=== PATIENT | male | born 1980 | race Two or more races ===

== ENCOUNTER 2022-04-12 11:59 | Emergency (ER) | payer SELFPAY ==
[~2022-04-12] VITALS: Ht 182.9 cm; Wt 102.4 kg
[2022-04-12 12:48] VITALS: BP 195/140
[2022-04-12 12:51] LABS: BASOPHILS % (AUTO) 0.3 % (0-1); EOSINOPHILS # (AUTO) 0.2 X10'3 (0-0.9); EOSINOPHILS % (AUTO) 1.2 % (0-6); HEMATOCRIT 36.6 % (42.0-52.0); HEMOGLOBIN 11.9 g/dl (14.0-17.9); LYMPHOCYTES # (AUTO) 1.7 X10'3 (1.1-4.8); LYMPHOCYTES % (AUTO) 11.9 % (21-51); MEAN CORPUSCULAR HEMOGLOBIN 25.7 PG (27.0-31.0); MEAN CORPUSCULAR HGB CONC 32.4 g/dL (33.0-36.5); MEAN CORPUSCULAR VOLUME 79.2 FL (78-98); MEAN PLATELET VOLUME 6.9 FL (7.4-10.4); MONOCYTES # (AUTO) 0.9 X10'3 (0-0.9); MONOCYTES % (AUTO) 5.9 % (2-12); NEUTROPHILS # (AUTO) 11.9 X10'3 (1.8-7.7); NEUTROPHILS % (AUTO) 80.7 % (42-75); PLATELET COUNT 459 X10'3 (140-440); RED BLOOD COUNT 4.62 X10'6 (4.70-6.10); RED CELL DISTRIBUTION WIDTH 15.5 % (11.5-14.5); WHITE BLOOD COUNT 14.7 X10'3 (4.5-11.0)
[2022-04-12 13:06] LABS: ALANINE AMINOTRANSFERASE 18 U/L (12-78); ALBUMIN 3.1 G/DL (3.4-5.0); ALBUMIN/GLOBULIN RATIO 0.7 (1.1-1.5); ALKALINE PHOSPHATASE 68 IU/L (46-116); ANION GAP 15 (8-16); ASPARTATE AMINO TRANSFERASE 10 U/L (10-37); BILIRUBIN,TOTAL 0.5 MG/DL (0.1-1.0); BLOOD UREA NITROGEN 68 MG/DL (7-18); CALCIUM 9.3 MG/DL (8.5-10.1); CHLORIDE 106 MMOL/L (99-107); CREATININE 5.69 MG/DL (0.60-1.10); GLUCOSE 109 MG/DL (70-104); POTASSIUM 4.2 MMOL/L (3.5-5.1); SODIUM 141 MMOL/L (135-145); TOTAL CARBON DIOXIDE 20.3 MMOL/L (24-32); TOTAL PROTEIN 7.5 G/DL (6.4-8.2); eGFR 11 ML/MIN
== END 2022-04-12 20:22 | disposition left against medical advice (07) ==
LOC: ER 12:00
DX: R06.02 Shortness of breath (principal); Z53.21 Procedure and treatment not carried out due to patient leaving prior to being seen by health care provider
CPT/HCPCS: 36415; 71045; 80053; 83880; 84484; 85025; 93005

== ENCOUNTER 2022-05-22 20:27 | Inpatient (IN) | payer BC, OTHER ==
[~2022-05-22] VITALS: Ht 182.9 cm; Wt 94.3 kg
[2022-05-22] MEDS ORDERED: CARV3.12 PO (20:51)
[2022-05-22] MEDS ORDERED: NIFE30TA2 PO (20:51)
[2022-05-22] MEDS ORDERED: ringers solution, lacted 1,000 ML IV ONE (22:00)
[2022-05-22] MEDS ORDERED: piperacillin/tazo 3.375gm/50ml 50 ML IV ONE (22:00)
[2022-05-22] MEDS ORDERED: morphine 4 MG/ML inj SYRINge IV ONE (22:00)
[2022-05-22] MEDS ORDERED: ondansetron/PF 4mg/2ml inj IV ONE ×2 (22:00→23:45)
[2022-05-22 22:21] LABS: BASOPHILS % (AUTO) 0.1 % (0-1); EOSINOPHILS # (AUTO) 0.2 X10'3 (0-0.9); HEMATOCRIT 37.1 % (42.0-52.0); HEMOGLOBIN 12.6 g/dl (14.0-17.9); LYMPHOCYTES % (AUTO) 9.2 % (21-51); MEAN CORPUSCULAR HEMOGLOBIN 25.6 PG (27.0-31.0); MEAN CORPUSCULAR HGB CONC 33.8 g/dL (33.0-36.5); MEAN CORPUSCULAR VOLUME 75.8 FL (78-98); MEAN PLATELET VOLUME 6.6 FL (7.4-10.4); MONOCYTES # (AUTO) 1.7 X10'3 (0-0.9); MONOCYTES % (AUTO) 7.5 % (2-12); NEUTROPHILS # (AUTO) 18.1 X10'3 (1.8-7.7); NEUTROPHILS % (AUTO) 82.2 % (42-75); PLATELET COUNT 555 X10'3 (140-440); RED CELL DISTRIBUTION WIDTH 15.1 % (11.5-14.5); WHITE BLOOD COUNT 22.1 X10'3 (4.5-11.0)
[2022-05-22 22:38] LABS: ALANINE AMINOTRANSFERASE 14 U/L (12-78); ALBUMIN 2.6 G/DL (3.4-5.0); ALBUMIN/GLOBULIN RATIO 0.6 (1.1-1.5); ALKALINE PHOSPHATASE 67 IU/L (46-116); ANION GAP 19 (8-16); ASPARTATE AMINO TRANSFERASE 6 U/L (10-37); BILIRUBIN,TOTAL 0.3 MG/DL (0.1-1.0); BLOOD UREA NITROGEN 98 MG/DL (7-18); BUN/CREATININE RATIO 13.4 (5.4-32.0); CALCIUM 8.8 MG/DL (8.5-10.1); CHLORIDE 100 MMOL/L (99-107); CREATININE 7.32 MG/DL (0.60-1.10); GLUCOSE 112 MG/DL (70-104); MAGNESIUM 2.1 MG/DL (1.5-2.4); PHOSPHORUS 5.6 MG/DL (2.3-4.5); POTASSIUM 3.9 MMOL/L (3.5-5.1); SODIUM 135 MMOL/L (135-145); TOTAL CARBON DIOXIDE 16.4 MMOL/L (24-32); TOTAL PROTEIN 6.7 G/DL (6.4-8.2); eGFR 8 ML/MIN
--- NOTE | 2022-05-22 23:15 | NUR ---
Doctor Chandan notified of patient ongoing hypertension, advised patient has not received procardia or coreg today, advised RN to give his regularly prescribed medications.
[2022-05-22] MEDS ORDERED: carVEDilol 3.125mg tablet PO SCH (23:19)
[2022-05-22] MEDS ORDERED: NIFEdipine XL 30mg tablet PO SCH (23:19)
--- NOTE | 2022-05-22 23:42 | NUR ---
pt on a hospital bed.
--- NOTE | 2022-05-22 23:42 | NUR ---
PLACED ON IN-PATIENT HOSP BED
[2022-05-23] MEDS ORDERED: diphenhydrAMINE 50 mg/ml inj IV PRN (00:35)
[2022-05-23] MEDS ORDERED: morphine 2 MG/ML inj. syringe IV PRN ×2 (00:35)
[2022-05-23] MEDS ORDERED: mag hydrox/Alum hydrox/simeth 30ml oral suspension PO PRN (00:35)
[2022-05-23] MEDS ORDERED: HYDROcodone/acetaminophen 5mg/325mg tablet PO PRN (00:35)
[2022-05-23] MEDS ORDERED: acetaminophen 325mg tablet PO PRN ×2 (00:35)
[2022-05-23] MEDS ORDERED: ondansetron 4mg rapidly disintigrating tab PO PRN (00:35)
[2022-05-23] MEDS ORDERED: bisacodyl 10mg suppository rectal RC PRN (00:35)
[2022-05-23] MEDS ORDERED: diphenhydrAMINE 25mg capsule PO PRN (00:35)
[2022-05-23] MEDS ORDERED: magnesium hydroxide 30ml (MOM) UD suspension PO PRN (00:35)
[2022-05-23] MEDS ORDERED: acetaminophen 650mg rectal suppository RC PRN (00:35)
[2022-05-23] MEDS ORDERED: ondansetron/PF 4mg/2ml inj IV PRN (00:35)
[2022-05-23] MEDS ORDERED: normal saline 1000ml 1,000 ML IV SCH (00:35)
[2022-05-23 01:32] LABS: CLARITY,URINE CLEAR (Clear); COLOR,URINE YELLOW (Yellow); GLUCOSE, URINE NEGATIVE (Neg); KETONES,URINE NEGATIVE (Neg); LEUKOCYTE ESTERASE ,URINE NEGATIVE (Neg); NITRITES, URINE NEGATIVE (Neg); OCCULT BLOOD,URINE MODERATE (Neg); PH,URINE 5.5 (4.8-8.0); PROTEIN,URINE 30 mg/dl (Neg); UROBILINOGEN,URINE 0.2 E.U/dL (0.2-1.0)
[2022-05-23 01:37] LABS: UA COLLECTION TYPE VOIDED; WBC,URINE 0-4 /HPF (0-4)
[2022-05-23 01:38] LABS: BACTERIA,URINE FEW /HPF (Neg); SQUAMOUS EPITHELIAL CELL,UR FEW /LPF (FEW)
[2022-05-23 01:50] LABS: URINE AMPHETAMINE SCREEN NEGATIVE (Neg); URINE BARBITUATE SCREEN NEGATIVE (Neg); URINE BENZODIAZEPINES SCREEN NEGATIVE (Neg); URINE CANNABINOID SCREEN NEGATIVE (Neg); URINE COCAINE SCREEN NEGATIVE (Neg); URINE METHADONE SCREEN NEGATIVE (Neg); URINE OPIATE SCREEN POSITIVE (Neg); URINE PHENCYCLIDINE SCREEN NEGATIVE (Neg)
[2022-05-23] MEDS ORDERED: CARV6.253 PO (02:24)
[2022-05-23] MEDS ORDERED: NIFE-34 PO (02:24)
[2022-05-23] MEDS ORDERED: carVEDilol 3.125mg tablet PO STA (02:52)
[2022-05-23] MEDS ORDERED: NIFEdipine XL 30mg tablet PO STA (02:52)
--- NOTE | 2022-05-23 02:56 | NUR ---
Patient continues with hypertension, 166/110. Provider notified, after discussion with pharmacy and updated dosages of nifedipine and coreg, advised give remainder of confirmed dosages of these. Discussed with pharmacy who kindly agrees to assist with adjustment of orders.
[2022-05-23 03:16] LABS: HEMOGLOBIN A1C 5.6 % (4.5-6.2)
[2022-05-23 03:24] LABS: APTT 30 SECONDS (22-32)
[2022-05-23 03:31] LABS: CREATINE KINASE 29 U/L (39-308); LIPASE 208 U/L (73-393)
--- NOTE | 2022-05-23 06:59 | NUR ---
report from rn rekha for continuation of care. pt is sleeping in position of comfort. even rise and fall of chest.
[2022-05-23] MEDS: docusate sod 100mg capsule PO SCH ×2 (08:00→20:00)
[2022-05-23] MEDS: nicotine 21mg patch - 24 hr TD SCH (08:50)
[2022-05-23] MEDS: heparin, porcine 5000 units/ml vial SQ SCH ×2 (08:53→20:37)
[2022-05-23] MEDS: pantoprazole 40mg Tablet.DR PO SCH (08:53)
[2022-05-23] MEDS: piperacillin/tazo 4.5gm/100ml 100 ML IV SCH ×2 (09:24→20:37)
--- NOTE | 2022-05-23 11:04 | NUR ---
Patient in room [facility] 347B. I have received report from MARYANNE RUIZ FROM ER and had the opportunity to ask questions and assume patient care.
[2022-05-23 11:47] LABS: BASOPHILS % (AUTO) 0.2 % (0-1); EOSINOPHILS # (AUTO) 0.2 X10'3 (0-0.9); EOSINOPHILS % (AUTO) 0.9 % (0-6); HEMATOCRIT 36.3 % (42.0-52.0); HEMOGLOBIN 12.1 g/dl (14.0-17.9); LYMPHOCYTES # (AUTO) 1.7 X10'3 (1.1-4.8); LYMPHOCYTES % (AUTO) 9.6 % (21-51); MEAN CORPUSCULAR HEMOGLOBIN 25.2 PG (27.0-31.0); MEAN CORPUSCULAR HGB CONC 33.4 g/dL (33.0-36.5); MEAN CORPUSCULAR VOLUME 75.4 FL (78-98); MEAN PLATELET VOLUME 6.6 FL (7.4-10.4); MONOCYTES # (AUTO) 1.1 X10'3 (0-0.9); MONOCYTES % (AUTO) 6.2 % (2-12); NEUTROPHILS # (AUTO) 14.9 X10'3 (1.8-7.7); NEUTROPHILS % (AUTO) 83.1 % (42-75); PLATELET COUNT 523 X10'3 (140-440); RED BLOOD COUNT 4.81 X10'6 (4.70-6.10); WHITE BLOOD COUNT 17.9 X10'3 (4.5-11.0)
[2022-05-23 11:54] LABS: ALANINE AMINOTRANSFERASE 13 U/L (12-78); ALBUMIN 2.4 G/DL (3.4-5.0); ALBUMIN/GLOBULIN RATIO 0.6 (1.1-1.5); ALKALINE PHOSPHATASE 62 IU/L (46-116); ANION GAP 17 (8-16); ASPARTATE AMINO TRANSFERASE 6 U/L (10-37); BILIRUBIN,TOTAL 0.3 MG/DL (0.1-1.0); BLOOD UREA NITROGEN 99 MG/DL (7-18); BUN/CREATININE RATIO 13.7 (5.4-32.0); CALCIUM 8.6 MG/DL (8.5-10.1); CHLORIDE 100 MMOL/L (99-107); CREATININE 7.24 MG/DL (0.60-1.10); GLUCOSE 135 MG/DL (70-104); MAGNESIUM 2.1 MG/DL (1.5-2.4); PHOSPHORUS 5.1 MG/DL (2.3-4.5); POTASSIUM 3.8 MMOL/L (3.5-5.1); SODIUM 134 MMOL/L (135-145); TOTAL CARBON DIOXIDE 17.1 MMOL/L (24-32); TOTAL PROTEIN 6.3 G/DL (6.4-8.2); eGFR 8 ML/MIN
[2022-05-23] MEDS: methylPREDNISolone sod succ 125mg/2ml vial IV SCH ×2 (16:54→23:45)
[2022-05-23 18:00] VITALS: BP 154/98
--- NOTE | 2022-05-23 18:12 | NUR ---
Problems reprioritized. Patient report given, questions answered & plan of care reviewed with ALAN Zamora RN.
[2022-05-23] MEDS: carvedilol 6.25mg tablet PO SCH (20:37)
[2022-05-23] MEDS ORDERED: temazepam 15mg capsule PO PRN (21:00)
[2022-05-23 22:00] VITALS: BP 160/107
--- NOTE | 2022-05-24 05:57 | NUR ---
Report given to Kassie MADDEN.
[2022-05-24 06:00] VITALS: BP 149/105
--- NOTE | 2022-05-24 06:12 | NUR ---
Patient in room [facility] 347B. I have received report from ALAN Zamora RN and had the opportunity to ask questions and assume patient care.
[2022-05-24 06:47] LABS: BASOPHILS % (AUTO) 0 % (0-1); EOSINOPHILS % (AUTO) 0 % (0-6); HEMATOCRIT 37.9 % (42.0-52.0); HEMOGLOBIN 12.3 g/dl (14.0-17.9); LYMPHOCYTES # (AUTO) 1.1 X10'3 (1.1-4.8); LYMPHOCYTES % (AUTO) 6.7 % (21-51); MEAN CORPUSCULAR HEMOGLOBIN 24.7 PG (27.0-31.0); MEAN CORPUSCULAR HGB CONC 32.5 g/dL (33.0-36.5); MEAN CORPUSCULAR VOLUME 75.9 FL (78-98); MEAN PLATELET VOLUME 6.9 FL (7.4-10.4); MONOCYTES # (AUTO) 0.1 X10'3 (0-0.9); MONOCYTES % (AUTO) 0.4 % (2-12); NEUTROPHILS # (AUTO) 14.6 X10'3 (1.8-7.7); NEUTROPHILS % (AUTO) 92.9 % (42-75); PLATELET COUNT 510 X10'3 (140-440); RED BLOOD COUNT 4.99 X10'6 (4.70-6.10); RED CELL DISTRIBUTION WIDTH 15.1 % (11.5-14.5); WHITE BLOOD COUNT 15.7 X10'3 (4.5-11.0)
[2022-05-24 07:07] LABS: ALANINE AMINOTRANSFERASE 9 U/L (12-78); ALBUMIN 2.6 G/DL (3.4-5.0); ALBUMIN/GLOBULIN RATIO 0.6 (1.1-1.5); ALKALINE PHOSPHATASE 77 IU/L (46-116); ANION GAP 17 (8-16); ASPARTATE AMINO TRANSFERASE 14 U/L (10-37); BILIRUBIN,TOTAL 0.3 MG/DL (0.1-1.0); BLOOD UREA NITROGEN 96 MG/DL (7-18); BUN/CREATININE RATIO 13.4 (5.4-32.0); CHLORIDE 100 MMOL/L (99-107); CHOL/HDL RATIO 3.8 (0.00-4.99); CHOLESTEROL 192 MG/DL (0-200); CREATININE 7.16 MG/DL (0.60-1.10); GLUCOSE 139 MG/DL (70-104); HDL CHOLESTEROL 50 MG/DL (35-60); LACTATE DEHYDROGENASE 141 U/L (85-227); LDL CHOLESTEROL 121 MG/DL (50-100); POTASSIUM 4.2 MMOL/L (3.5-5.1); SODIUM 136 MMOL/L (135-145); TOTAL CARBON DIOXIDE 18.7 MMOL/L (24-32); TRIGLYCERIDES 155 MG/DL (20-135); eGFR 8 ML/MIN
[2022-05-24 07:10] LABS: RHEUM FACTOR QUAL REFLEX TITER NEGATIVE (Neg)
[2022-05-24] MEDS: pantoprazole 40mg Tablet.DR PO SCH (07:30)
[2022-05-24] MEDS: docusate sod 100mg capsule PO SCH ×2 (07:45→19:09)
[2022-05-24] MEDS: heparin, porcine 5000 units/ml vial SQ SCH ×2 (07:45→19:15)
[2022-05-24] MEDS ORDERED: heparin 1,000unit/ml 10ml vial 10 ML IV ONE (08:00)
[2022-05-24] MEDS ORDERED: albumin (human) 25% 100ml IV 100 ML IV PRN (08:00)
[2022-05-24] MEDS ORDERED: heparin 1,000 units/ml 10ml inj HE ONE ×2 (08:00)
[2022-05-24] MEDS ORDERED: heparin 1,000 units/ml 10ml inj IV ONE (08:00)
[2022-05-24] MEDS: piperacillin/tazo 4.5gm/100ml 100 ML IV SCH ×2 (08:07→19:15)
[2022-05-24] MEDS: methylPREDNISolone sod succ 125mg/2ml vial IV SCH ×3 (08:09→23:40)
[2022-05-24] MEDS: nicotine 21mg patch - 24 hr TD SCH (08:16)
[2022-05-24] MEDS: carvedilol 6.25mg tablet PO SCH ×2 (08:54→19:15)
[2022-05-24] MEDS: NIFEdipine XL 30mg tablet PO SCH (08:54)
[2022-05-24 10:00] VITALS: BP 138/89
[2022-05-24 10:33] LABS: CLARITY,URINE CLEAR (Clear); COLOR,URINE STRAW (Yellow); GLUCOSE, URINE NEGATIVE (Neg); KETONES,URINE NEGATIVE (Neg); LEUKOCYTE ESTERASE ,URINE NEGATIVE (Neg); NITRITES, URINE NEGATIVE (Neg); OCCULT BLOOD,URINE MODERATE (Neg); PH,URINE 5.5 (4.8-8.0); PROTEIN,URINE 100 mg/dl (Neg); UROBILINOGEN,URINE 0.2 E.U/dL (0.2-1.0)
[2022-05-24 10:37] LABS: TOTAL PROTEIN,URINE RANDOM 138.1 MG/DL
[2022-05-24 10:39] LABS: UA COLLECTION TYPE CLN CATCH MIDSTREAM
[2022-05-24 10:40] LABS: BACTERIA,URINE FEW /HPF (Neg); MUCUS STRANDS NONE SEEN /LPF (Neg); SQUAMOUS EPITHELIAL CELL,UR FEW /LPF (FEW)
[2022-05-24 10:41] LABS: WBC,URINE NONE SEEN /HPF (0-4)
[2022-05-24 11:09] LABS: UA EOSINOPHILS NO EOS /HPF
[2022-05-24] MEDS: HYDROcodone/acetaminophen 10/325mg tab PO PRN ×3 (13:51→23:41)
[2022-05-24] MEDS: HYDROmorphone inj. 0.5 MG/0.5 ML DISP.SYRIN IV PRN (15:03)
[2022-05-24 18:00] VITALS: BP 165/95
--- NOTE | 2022-05-24 19:12 | NUR ---
Problems reprioritized. Patient report given, questions answered & plan of care reviewed with ALAN Zamora RN.
[2022-05-24 22:00] VITALS: BP 163/100
--- NOTE | 2022-05-25 05:55 | NUR ---
Report given to Kassie MADDEN.
[2022-05-25 06:00] VITALS: BP 168/107
[2022-05-25 06:02] LABS: BASOPHILS % (AUTO) 0.1 % (0-1); EOSINOPHILS % (AUTO) 0 % (0-6); HEMATOCRIT 32.8 % (42.0-52.0); HEMOGLOBIN 10.5 g/dl (14.0-17.9); LYMPHOCYTES # (AUTO) 1.2 X10'3 (1.1-4.8); LYMPHOCYTES % (AUTO) 4.4 % (21-51); MEAN CORPUSCULAR HEMOGLOBIN 24.4 PG (27.0-31.0); MEAN CORPUSCULAR HGB CONC 32.1 g/dL (33.0-36.5); MEAN CORPUSCULAR VOLUME 75.8 FL (78-98); MEAN PLATELET VOLUME 6.9 FL (7.4-10.4); MONOCYTES # (AUTO) 0.3 X10'3 (0-0.9); MONOCYTES % (AUTO) 1.2 % (2-12); NEUTROPHILS # (AUTO) 26.4 X10'3 (1.8-7.7); NEUTROPHILS % (AUTO) 94.3 % (42-75); PLATELET COUNT 473 X10'3 (140-440); RED BLOOD COUNT 4.33 X10'6 (4.70-6.10); RED CELL DISTRIBUTION WIDTH 14.8 % (11.5-14.5)
--- NOTE | 2022-05-25 06:18 | NUR ---
CRITICAL WBC 28.0, DR BATEMAN CALLED NO NEW ORDERS
--- NOTE | 2022-05-25 06:19 | NUR ---
Patient in room [facility] 347B. I have received report from ALAN Zamora RN and had the opportunity to ask questions and assume patient care.
[2022-05-25 06:28] LABS: ALBUMIN 2.4 G/DL (3.4-5.0); ALBUMIN/GLOBULIN RATIO 0.6 (1.1-1.5); ALKALINE PHOSPHATASE 82 IU/L (46-116); ANION GAP 15 (8-16); ASPARTATE AMINO TRANSFERASE 18 U/L (10-37); BILIRUBIN,TOTAL 0.3 MG/DL (0.1-1.0); BLOOD UREA NITROGEN 116 MG/DL (7-18); CALCIUM 8.1 MG/DL (8.5-10.1); CHLORIDE 100 MMOL/L (99-107); CREATININE 7.72 MG/DL (0.60-1.10); GLUCOSE 149 MG/DL (70-104); SODIUM 134 MMOL/L (135-145); TOTAL CARBON DIOXIDE 18.7 MMOL/L (24-32); TOTAL PROTEIN 6.2 G/DL (6.4-8.2); eGFR 8 ML/MIN
[2022-05-25 06:29] LABS: ALANINE AMINOTRANSFERASE 18 U/L (12-78)
[2022-05-25 07:46] LABS: PLATELET ESTIMATE INCREASED; TOTAL CELLS COUNTED 100
[2022-05-25] MEDS: docusate sod 100mg capsule PO SCH ×2 (08:00→19:56)
[2022-05-25] MEDS ORDERED: heparin 1,000 units/ml 10ml inj HE ONE ×2 (08:00)
[2022-05-25] MEDS: heparin, porcine 5000 units/ml vial SQ SCH ×2 (08:00→19:56)
[2022-05-25] MEDS ORDERED: normal saline 1000ml 250 ML IV PRN (08:00)
[2022-05-25] MEDS ORDERED: heparin 1,000unit/ml 10ml vial 10 ML IV ONE (08:00)
[2022-05-25] MEDS: NIFEdipine XL 30mg tablet PO SCH (08:01)
[2022-05-25] MEDS: pantoprazole 40mg Tablet.DR PO SCH (08:01)
[2022-05-25] MEDS: carvedilol 6.25mg tablet PO SCH ×2 (08:01→19:55)
[2022-05-25] MEDS: nicotine 21mg patch - 24 hr TD SCH (08:02)
[2022-05-25] MEDS: methylPREDNISolone sod succ 125mg/2ml vial IV SCH ×3 (08:03→23:34)
[2022-05-25] MEDS: piperacillin/tazo 4.5gm/100ml 100 ML IV SCH ×2 (08:03→19:56)
[2022-05-25] MEDS: HYDROcodone/acetaminophen 10/325mg tab PO PRN ×3 (08:21→19:56)
[2022-05-25 11:00] VITALS: BP 143/88
--- NOTE | 2022-05-25 13:06 | NUR ---
Received order for consult. Met with patient in regards to substance use and to see if patient wanted any resources for treatment options. Patient declined resources and substance use.
[2022-05-25 18:00] VITALS: BP 146/90
--- NOTE | 2022-05-25 18:06 | NUR ---
Problems reprioritized. Patient report given, questions answered & plan of care reviewed with ALAN Zamora RN.
[2022-05-25 22:00] VITALS: BP 147/90
[2022-05-25] MEDS: HYDROmorphone inj. 0.5 MG/0.5 ML DISP.SYRIN IV PRN (22:32)
[2022-05-26 06:00] VITALS: BP 185/111
[2022-05-26 06:32] LABS: BASOPHILS % (AUTO) 0 % (0-1); EOSINOPHILS % (AUTO) 0 % (0-6); HEMATOCRIT 29.6 % (42.0-52.0); HEMOGLOBIN 9.9 g/dl (14.0-17.9); LYMPHOCYTES # (AUTO) 1.2 X10'3 (1.1-4.8); LYMPHOCYTES % (AUTO) 4.1 % (21-51); MEAN CORPUSCULAR HEMOGLOBIN 25.2 PG (27.0-31.0); MEAN CORPUSCULAR HGB CONC 33.5 g/dL (33.0-36.5); MEAN CORPUSCULAR VOLUME 75.3 FL (78-98); MEAN PLATELET VOLUME 6.9 FL (7.4-10.4); MONOCYTES # (AUTO) 0.4 X10'3 (0-0.9); MONOCYTES % (AUTO) 1.5 % (2-12); NEUTROPHILS # (AUTO) 27.9 X10'3 (1.8-7.7); NEUTROPHILS % (AUTO) 94.4 % (42-75); PLATELET COUNT 486 X10'3 (140-440); RED BLOOD COUNT 3.93 X10'6 (4.70-6.10); RED CELL DISTRIBUTION WIDTH 14.5 % (11.5-14.5)
[2022-05-26 06:37] LABS: WHITE BLOOD COUNT 29.5 X10'3 (4.5-11.0)
[2022-05-26 06:45] LABS: ALANINE AMINOTRANSFERASE 29 U/L (12-78); ALBUMIN 2.3 G/DL (3.4-5.0); ALBUMIN/GLOBULIN RATIO 0.6 (1.1-1.5); ALKALINE PHOSPHATASE 77 IU/L (46-116); ANION GAP 18 (8-16); ASPARTATE AMINO TRANSFERASE 19 U/L (10-37); BILIRUBIN,TOTAL 0.3 MG/DL (0.1-1.0); BLOOD UREA NITROGEN 132 MG/DL (7-18); CALCIUM 7.6 MG/DL (8.5-10.1); CHLORIDE 99 MMOL/L (99-107); CREATININE 7.78 MG/DL (0.60-1.10); GLUCOSE 163 MG/DL (70-104); POTASSIUM 3.9 MMOL/L (3.5-5.1); SODIUM 135 MMOL/L (135-145); TOTAL CARBON DIOXIDE 17.9 MMOL/L (24-32); eGFR 8 ML/MIN
--- NOTE | 2022-05-26 06:53 | NUR ---
promotional table spacer promotional table spacer Page Sent promotional table spacer PAGER ID: [phone] MESSAGE: michelle Hassan Rm 347B critical WBC 29.5 thank you Artis MADDEN
[2022-05-26 07:28] LABS: BURR CELLS FEW; MICROCYTOSIS 1+; PLATELET ESTIMATE INCREASED; TOTAL CELLS COUNTED 100
[2022-05-26] MEDS: heparin, porcine 5000 units/ml vial SQ SCH ×2 (08:00→20:34)
[2022-05-26] MEDS: pantoprazole 40mg Tablet.DR PO SCH (08:02)
[2022-05-26] MEDS: methylPREDNISolone sod succ 125mg/2ml vial IV SCH ×3 (08:03→23:45)
[2022-05-26] MEDS: NIFEdipine XL 30mg tablet PO SCH (08:03)
[2022-05-26] MEDS: carvedilol 6.25mg tablet PO SCH ×2 (08:03→20:34)
[2022-05-26] MEDS: docusate sod 100mg capsule PO SCH ×2 (08:03→20:34)
[2022-05-26] MEDS: nicotine 21mg patch - 24 hr TD SCH (08:04)
[2022-05-26 08:30] VITALS: BP 173/98
[2022-05-26] MEDS: piperacillin/tazo 4.5gm/100ml 100 ML IV SCH ×2 (08:54→20:34)
[2022-05-26 10:00] VITALS: BP 143/87
[2022-05-26] MEDS ORDERED: LIDOcaine 1% 30ml preserv. free vial ONE (10:51)
[2022-05-26] MEDS ORDERED: midazolam 1 mg/ML 2ml injection ONE (10:51)
[2022-05-26] MEDS ORDERED: FENTANYL CITRATE/PF 50 MCG/1 ML VIAL ONE (10:51)
[2022-05-26] MEDS ORDERED: heparin 1,000unit/ml 10ml vial 10 ML ONE (10:52)
[2022-05-26 11:14] LABS: ANTINUCLEAR ANTIBODIES Negative (Negative)
[2022-05-26] MEDS: HYDROcodone/acetaminophen 10/325mg tab PO PRN (11:48)
[2022-05-26 18:00] VITALS: BP 147/84
[2022-05-26 22:30] VITALS: BP 159/89
[2022-05-27 05:14] LABS: HBSAG SCREEN Negative (Negative)
--- NOTE | 2022-05-27 06:11 | NUR ---
reported to days. noted pt hopefully to have kidney biopsy today
--- NOTE | 2022-05-27 06:15 | NUR ---
Patient in room [facility] 347. I have received report from MARYANNE Menendez and had the opportunity to ask questions and assume patient care.
[2022-05-27 06:30] LABS: BASOPHILS % (AUTO) 0.1 % (0-1); EOSINOPHILS % (AUTO) 0 % (0-6); HEMOGLOBIN 9.3 g/dl (14.0-17.9); LYMPHOCYTES # (AUTO) 1.1 X10'3 (1.1-4.8); LYMPHOCYTES % (AUTO) 3.9 % (21-51); MEAN CORPUSCULAR HEMOGLOBIN 24.8 PG (27.0-31.0); MEAN CORPUSCULAR HGB CONC 33.1 g/dL (33.0-36.5); MONOCYTES # (AUTO) 1.1 X10'3 (0-0.9); MONOCYTES % (AUTO) 3.8 % (2-12); NEUTROPHILS # (AUTO) 25.8 X10'3 (1.8-7.7); NEUTROPHILS % (AUTO) 92.2 % (42-75); PLATELET COUNT 475 X10'3 (140-440); RED BLOOD COUNT 3.73 X10'6 (4.70-6.10); RED CELL DISTRIBUTION WIDTH 15.5 % (11.5-14.5)
--- NOTE | 2022-05-27 06:43 | NUR ---
Dr. Hawley notified of WBC 28. No new orders.
[2022-05-27 07:07] VITALS: BP 161/100
[2022-05-27 07:25] LABS: ALANINE AMINOTRANSFERASE 31 U/L (12-78); ALBUMIN 2.3 G/DL (3.4-5.0); ALBUMIN/GLOBULIN RATIO 0.7 (1.1-1.5); ALKALINE PHOSPHATASE 63 IU/L (46-116); ANION GAP 16 (8-16); ASPARTATE AMINO TRANSFERASE 9 U/L (10-37); BILIRUBIN,TOTAL 0.2 MG/DL (0.1-1.0); BLOOD UREA NITROGEN 106 MG/DL (7-18); BUN/CREATININE RATIO 18.9 (5.4-32.0); CALCIUM 7.7 MG/DL (8.5-10.1); CHLORIDE 102 MMOL/L (99-107); CREATININE 5.62 MG/DL (0.60-1.10); GLUCOSE 138 MG/DL (70-104); POTASSIUM 3.9 MMOL/L (3.5-5.1); SODIUM 138 MMOL/L (135-145); TOTAL CARBON DIOXIDE 20.1 MMOL/L (24-32); TOTAL PROTEIN 5.6 G/DL (6.4-8.2); eGFR 11 ML/MIN
[2022-05-27] MEDS: docusate sod 100mg capsule PO SCH ×2 (08:00→19:30)
[2022-05-27] MEDS: nicotine 21mg patch - 24 hr TD SCH (09:20)
[2022-05-27] MEDS: pantoprazole 40mg Tablet.DR PO SCH (09:21)
[2022-05-27] MEDS: carvedilol 6.25mg tablet PO SCH ×2 (09:21→19:34)
[2022-05-27] MEDS: NIFEdipine XL 30mg tablet PO SCH (09:21)
[2022-05-27] MEDS: heparin, porcine 5000 units/ml vial SQ SCH ×2 (09:21→19:34)
[2022-05-27] MEDS: piperacillin/tazo 4.5gm/100ml 100 ML IV SCH ×2 (09:22→19:33)
[2022-05-27] MEDS: methylPREDNISolone sod succ 125mg/2ml vial IV SCH ×3 (09:22→23:46)
[2022-05-27 09:28] LABS: NUCLEATED RED BLOOD CELLS 1 /100WBC (0-0); TOTAL CELLS COUNTED 100
[2022-05-27 09:29] LABS: MICROCYTOSIS 1+; PLATELET ESTIMATE INCREASED
[2022-05-27 09:30] LABS: ELLIPTOCYTES FEW; TEAR DROP CELLS FEW
[2022-05-27] MEDS ORDERED: normal saline 1000ml 250 ML IV PRN (09:50)
[2022-05-27] MEDS ORDERED: heparin 1,000unit/ml 10ml vial 10 ML IV ONE (09:50)
[2022-05-27] MEDS ORDERED: EPOETIN ALFA-EPBX 20,000 UNIT/ML 1 ML MDV IV ONE (09:50)
[2022-05-27] MEDS ORDERED: heparin 1,000 units/ml 10ml inj HE ONE ×2 (09:55)
[2022-05-27 10:00] VITALS: BP 184/106
[2022-05-27] MEDS ORDERED: tuberculin, purif. prot. deriv. 5 units/0.1ml ID ONE (10:20)
[2022-05-27] MEDS: HYDROcodone/acetaminophen 10/325mg tab PO PRN ×3 (10:56→23:55)
--- NOTE | 2022-05-27 11:41 | NUR ---
department manager Kathleen at patients bedside.
[2022-05-27 14:10] VITALS: BP 132/58
--- NOTE | 2022-05-27 15:38 | NUR ---
PPD test administered to LFA.
--- NOTE | 2022-05-27 15:51 | NUR ---
Called to angio and spoke to MARYANNE Browning. Nallely states Dr. Calix prefers to do own kidney biopsy at bedside and there needs to be a team of pathologist and mosaic technician at bedside. She also stated that Dr. Maldonado office had called to set up procedure and may have more information. Called to Dr. Calix office and spoke to his medical lab technologist who stated she called to [facility] and was told that they would put patient on schedule but had no further information. Message sent to angio to return call. Addendum: 05/27/22 at 1827 by Breonna Watts RN Dr. Calix aware call to his office and angio team. Dr. Calix stated he wouldcall his office and have them attempt to set up kidney biopsy procedure.
[2022-05-27 18:00] VITALS: BP 138/88
--- NOTE | 2022-05-27 18:27 | NUR ---
Problems reprioritized. Patient report given, questions answered & plan of care reviewed with MARYANNE Menendez.
[2022-05-27 22:00] VITALS: BP 164/107
[2022-05-27] MEDS ORDERED: hydrALAZINE 20mg/ml inj. IV PRN (23:35)
[2022-05-28 02:00] VITALS: BP 169/93
--- NOTE | 2022-05-28 06:26 | NUR ---
Patient in room [facility] 347. I have received report from MARYANNE FUENTES and had the opportunity to ask questions and assume patient care.
[2022-05-28 06:31] VITALS: BP 148/84
--- NOTE | 2022-05-28 06:34 | NUR ---
reported to days. noted pt still on solumedrol 125 - pt may tolerate weaning off solumedrol. awaiting kidney biopsy that needs to be scheduled. pt voiding in urinal
[2022-05-28 07:08] LABS: BASOPHILS % (AUTO) 0.1 % (0-1); EOSINOPHILS % (AUTO) 0 % (0-6); HEMATOCRIT 27.3 % (42.0-52.0); HEMOGLOBIN 9.1 g/dl (14.0-17.9); LYMPHOCYTES # (AUTO) 1.8 X10'3 (1.1-4.8); LYMPHOCYTES % (AUTO) 5.7 % (21-51); MEAN CORPUSCULAR HGB CONC 33.2 g/dL (33.0-36.5); MEAN CORPUSCULAR VOLUME 75.2 FL (78-98); MEAN PLATELET VOLUME 6.9 FL (7.4-10.4); MONOCYTES # (AUTO) 1.1 X10'3 (0-0.9); MONOCYTES % (AUTO) 3.6 % (2-12); NEUTROPHILS # (AUTO) 28.1 X10'3 (1.8-7.7); NEUTROPHILS % (AUTO) 90.6 % (42-75); PLATELET COUNT 475 X10'3 (140-440); RED BLOOD COUNT 3.63 X10'6 (4.70-6.10); RED CELL DISTRIBUTION WIDTH 15.2 % (11.5-14.5)
[2022-05-28 07:24] LABS: ALANINE AMINOTRANSFERASE 28 U/L (12-78); ALBUMIN 2.3 G/DL (3.4-5.0); ALBUMIN/GLOBULIN RATIO 0.7 (1.1-1.5); ALKALINE PHOSPHATASE 66 IU/L (46-116); ANION GAP 13 (8-16); ASPARTATE AMINO TRANSFERASE 12 U/L (10-37); BILIRUBIN,TOTAL 0.2 MG/DL (0.1-1.0); BLOOD UREA NITROGEN 84 MG/DL (7-18); BUN/CREATININE RATIO 16.9 (5.4-32.0); CALCIUM 7.5 MG/DL (8.5-10.1); CHLORIDE 102 MMOL/L (99-107); CREATININE 4.97 MG/DL (0.60-1.10); GLUCOSE 139 MG/DL (70-104); POTASSIUM 3.6 MMOL/L (3.5-5.1); SODIUM 140 MMOL/L (135-145); TOTAL CARBON DIOXIDE 24.9 MMOL/L (24-32); TOTAL PROTEIN 5.7 G/DL (6.4-8.2); eGFR 13 ML/MIN
[2022-05-28 07:33] LABS: ANISOCYTOSIS 1+; MICROCYTOSIS 1+; PLATELET ESTIMATE NORMAL; TOTAL CELLS COUNTED 100
--- NOTE | 2022-05-28 07:33 | NUR ---
PAGER ID: [phone] MESSAGE: [id number]- GEOVANNY MONTANA- WBC 31 PREVIOUS WAS 28, 29.5, 28, 15.7. PATIENT ON SOLUMEDROL 125MG Q8 WELL. -LUBNA [id number]
[2022-05-28 07:34] LABS: ELLIPTOCYTES FEW; SCHISTOCYTES FEW; TEAR DROP CELLS FEW
[2022-05-28] MEDS: nicotine 21mg patch - 24 hr TD SCH (07:45)
[2022-05-28] MEDS: heparin, porcine 5000 units/ml vial SQ SCH ×2 (07:46→19:28)
[2022-05-28] MEDS: carvedilol 6.25mg tablet PO SCH ×2 (07:46→19:28)
[2022-05-28] MEDS: piperacillin/tazo 4.5gm/100ml 100 ML IV SCH ×2 (07:47→19:28)
[2022-05-28] MEDS: methylPREDNISolone sod succ 125mg/2ml vial IV SCH ×2 (07:47→16:46)
[2022-05-28] MEDS: pantoprazole 40mg Tablet.DR PO SCH (07:47)
[2022-05-28] MEDS: NIFEdipine XL 30mg tablet PO SCH (07:48)
[2022-05-28] MEDS: HYDROcodone/acetaminophen 10/325mg tab PO PRN ×2 (07:49→19:28)
[2022-05-28] MEDS: docusate sod 100mg capsule PO SCH ×2 (07:54→19:46)
[2022-05-28 10:00] VITALS: BP 146/87
[2022-05-28 13:14] LABS: ATYPICAL PANCA <1:20 titer (Neg:<1:20); CYTOPLASMIC (C-ANCA) <1:20 titer (Neg:<1:20); PERINUCLEAR (P-ANCA) <1:20 titer (Neg:<1:20)
[2022-05-28 18:00] VITALS: BP 133/92
--- NOTE | 2022-05-28 18:09 | NUR ---
Problems reprioritized. Patient report given, questions answered & plan of care reviewed with MARYANNE Roman.
--- NOTE | 2022-05-28 18:14 | NUR ---
Problems reprioritized. Patient report given, questions answered & plan of care reviewed with MARYANNE Roman.
--- NOTE | 2022-05-28 18:34 | NUR ---
Patient in room [facility] 347. I have received report from LUBNA MADDEN and had the opportunity to ask questions and assume patient care.
--- NOTE | 2022-05-28 19:01 | NUR ---
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 Difficult to determine nutrition status since lacking multiple days worth of meal intake documentation in EMR, however ~34% avg documented meals likely not meeting needs. RISSA recommends Nepro ONS TIDWM; notified. LBM 05/27 receiving routine colace though refused this AM per EMR. Will monitor for further PO acceptance and nutrition intervention needs this admit. Rec: 1. continue renal diet; encourage PO 2. Nepro ONS TIDWM; pending physician verification in EMR 3. consider Phos-binder w/ meals on HD per physician discretion 4. bowel care per rx 5. scaled wts w/ HD Addendum: 05/28/22 at [address] Amended: Links added.
[2022-05-28 22:00] VITALS: BP 144/85
[2022-05-29] MEDS: methylPREDNISolone sod succ 125mg/2ml vial IV SCH ×3 (00:27→17:52)
[2022-05-29 06:00] VITALS: BP 154/103
--- NOTE | 2022-05-29 06:37 | NUR ---
Problems reprioritized. Patient report given, questions answered & plan of care reviewed with OREN MADDEN.
[2022-05-29] MEDS: NIFEdipine XL 30mg tablet PO SCH (07:15)
[2022-05-29] MEDS: docusate sod 100mg capsule PO SCH ×2 (07:15→20:00)
[2022-05-29] MEDS: pantoprazole 40mg Tablet.DR PO SCH (07:16)
[2022-05-29] MEDS: HYDROcodone/acetaminophen 10/325mg tab PO PRN ×2 (07:16→22:42)
[2022-05-29] MEDS: carvedilol 6.25mg tablet PO SCH ×2 (07:16→20:05)
[2022-05-29] MEDS: nicotine 21mg patch - 24 hr TD SCH (07:17)
[2022-05-29] MEDS: piperacillin/tazo 4.5gm/100ml 100 ML IV SCH ×2 (07:17→20:05)
[2022-05-29] MEDS: heparin, porcine 5000 units/ml vial SQ SCH ×2 (07:18→20:05)
[2022-05-29] MEDS: NUT.TX.IMP.RENAL FXN,LAC-REDUC (Nepro) 237 ML VANILLA PO SCH ×3 (08:00→17:55)
[2022-05-29] MEDS ORDERED: heparin 1,000unit/ml 10ml vial 10 ML IV ONE (09:50)
[2022-05-29] MEDS ORDERED: EPOETIN ALFA-EPBX 20,000 UNIT/ML 1 ML MDV IV ONE (09:50)
[2022-05-29] MEDS ORDERED: normal saline 1000ml 250 ML IV PRN (09:50)
[2022-05-29] MEDS ORDERED: heparin 1,000 units/ml 10ml inj HE ONE ×2 (09:55)
[2022-05-29 10:00] VITALS: BP 131/89
[2022-05-29 14:36] LABS: HEMOGLOBIN 8.5 g/dl (14.0-17.9); MEAN CORPUSCULAR HEMOGLOBIN 24.9 PG (27.0-31.0); MEAN CORPUSCULAR HGB CONC 32.6 g/dL (33.0-36.5); MEAN CORPUSCULAR VOLUME 76.5 FL (78-98); MEAN PLATELET VOLUME 7.1 FL (7.4-10.4); PLATELET COUNT 466 X10'3 (140-440); RED BLOOD COUNT 3.39 X10'6 (4.70-6.10); RED CELL DISTRIBUTION WIDTH 15.4 % (11.5-14.5)
[2022-05-29 14:39] LABS: WHITE BLOOD COUNT 37.2 X10'3 (4.5-11.0)
[2022-05-29 14:46] LABS: ALBUMIN 2.3 G/DL (3.4-5.0); ANION GAP 17 (8-16); BLOOD UREA NITROGEN 109 MG/DL (7-18); CALCIUM 7.6 MG/DL (8.5-10.1); CHLORIDE 100 MMOL/L (99-107); CREATININE 5.74 MG/DL (0.60-1.10); GLUCOSE 180 MG/DL (70-104); POTASSIUM 3.3 MMOL/L (3.5-5.1); SODIUM 137 MMOL/L (135-145); TOTAL CARBON DIOXIDE 19.7 MMOL/L (24-32); eGFR 11 ML/MIN
--- NOTE | 2022-05-29 14:46 | NUR ---
WBC 37.2. Dr Samuels notified.
[2022-05-29 15:09] LABS: HBSAG SCREEN Negative (Negative); HEP B CORE AB, TOT Negative (Negative)
--- NOTE | 2022-05-29 16:44 | NUR ---
solumedrol 1600dose will be given after dialysis. it gets dialyzed off per transportation museum helper.
[2022-05-29 18:00] VITALS: BP 126/87
--- NOTE | 2022-05-29 18:29 | NUR ---
Report given back to Vikram RN, todays dialysis done w/ 1 L off per sample book maker. Dr Samuels aware of increase wbc but Prudance will also let Dr Davis know incase abx need to be changed.
--- NOTE | 2022-05-29 19:18 | NUR ---
Patient in room [facility] 347. I have received report from DE BOSS and had the opportunity to ask questions and assume patient care.
[2022-05-29 22:00] VITALS: BP 154/96
[2022-05-30] MEDS: methylPREDNISolone sod succ 125mg/2ml vial IV SCH ×3 (00:32→16:19)
[2022-05-30 06:00] VITALS: BP 138/96
--- NOTE | 2022-05-30 06:28 | NUR ---
Problems reprioritized. Patient report given, questions answered & plan of care reviewed with OLVIN MADDEN.
[2022-05-30] MEDS: docusate sod 100mg capsule PO SCH (08:00)
[2022-05-30] MEDS: heparin, porcine 5000 units/ml vial SQ SCH ×2 (08:19→21:01)
[2022-05-30] MEDS: carvedilol 6.25mg tablet PO SCH ×2 (08:20→21:02)
[2022-05-30] MEDS: nicotine 21mg patch - 24 hr TD SCH (08:20)
[2022-05-30] MEDS: NIFEdipine XL 30mg tablet PO SCH (08:20)
[2022-05-30] MEDS: piperacillin/tazo 4.5gm/100ml 100 ML IV SCH (08:20)
[2022-05-30] MEDS: pantoprazole 40mg Tablet.DR PO SCH (08:20)
[2022-05-30] MEDS: NUT.TX.IMP.RENAL FXN,LAC-REDUC (Nepro) 237 ML VANILLA PO SCH ×3 (08:21→18:00)
[2022-05-30 10:00] VITALS: BP 159/100
[2022-05-30] MEDS: HYDROcodone/acetaminophen 10/325mg tab PO PRN (10:46)
[2022-05-30 18:00] VITALS: BP 129/75
--- NOTE | 2022-05-30 21:00 | NUR ---
PT IS VOIDING NORMALLY
[2022-05-30 22:00] VITALS: BP 140/94
[2022-05-31] VITALS (18 sets, daily range): BP systolic 120–160; BP diastolic 68–100
[2022-05-31] MEDS: methylPREDNISolone sod succ 125mg/2ml vial IV SCH ×3 (00:12→16:24)
--- NOTE | 2022-05-31 06:39 | NUR ---
Problems reprioritized. Patient report given, questions answered & plan of care reviewed with OLVIN. Addendum: 05/31/22 at 0640 by Mario Alberto Bradley RN Amended: Links added.
[2022-05-31] MEDS: NUT.TX.IMP.RENAL FXN,LAC-REDUC (Nepro) 237 ML VANILLA PO SCH ×3 (07:46→18:00)
[2022-05-31] MEDS: heparin, porcine 5000 units/ml vial SQ SCH ×2 (07:46→20:00)
[2022-05-31] MEDS: pantoprazole 40mg Tablet.DR PO SCH (07:49)
[2022-05-31] MEDS: nicotine 21mg patch - 24 hr TD SCH (07:50)
[2022-05-31] MEDS: carvedilol 6.25mg tablet PO SCH ×2 (07:50→20:10)
[2022-05-31] MEDS: NIFEdipine XL 30mg tablet PO SCH (07:50)
[2022-05-31 09:44] LABS: BASOPHILS % (AUTO) 0.1 % (0-1); EOSINOPHILS % (AUTO) 0.1 % (0-6); HEMATOCRIT 26.7 % (42.0-52.0); HEMOGLOBIN 8.7 g/dl (14.0-17.9); LYMPHOCYTES # (AUTO) 1.1 X10'3 (1.1-4.8); LYMPHOCYTES % (AUTO) 3.3 % (21-51); MEAN CORPUSCULAR HEMOGLOBIN 25.3 PG (27.0-31.0); MEAN CORPUSCULAR HGB CONC 32.4 g/dL (33.0-36.5); MEAN PLATELET VOLUME 7.3 FL (7.4-10.4); MONOCYTES # (AUTO) 1.1 X10'3 (0-0.9); MONOCYTES % (AUTO) 3.2 % (2-12); NEUTROPHILS # (AUTO) 32.3 X10'3 (1.8-7.7); NEUTROPHILS % (AUTO) 93.3 % (42-75); PLATELET COUNT 471 X10'3 (140-440); RED BLOOD COUNT 3.42 X10'6 (4.70-6.10); RED CELL DISTRIBUTION WIDTH 15.9 % (11.5-14.5)
[2022-05-31 09:46] LABS: WHITE BLOOD COUNT 34.6 X10'3 (4.5-11.0)
--- NOTE | 2022-05-31 09:47 | NUR ---
PAGER ID: [phone] MESSAGE: Lisa Douglas [phone] Re: Mike Hassan 347B Critical lab WBC 34.6 Addendum: 05/31/22 at 0948 by Lisa Murray RN Per Dr Montgomery, Patient is on Steroids and Dr Booth is seeing patient. No new orders.
[2022-05-31 09:52] LABS: APTT 22 SECONDS (22-32)
--- NOTE | 2022-05-31 10:04 | NUR ---
Dr Booth is aware of pt's WBC 34.[address] Latonia Chan is also aware. stated in light of the pt receiving IV Solumedrol q8h the renal bx will still occur today.
[2022-05-31 10:25] LABS: ALANINE AMINOTRANSFERASE 22 U/L (12-78); ALBUMIN 2.4 G/DL (3.4-5.0); ALBUMIN/GLOBULIN RATIO 0.8 (1.1-1.5); ALKALINE PHOSPHATASE 56 IU/L (46-116); ANION GAP 19 (8-16); ASPARTATE AMINO TRANSFERASE 7 U/L (10-37); BILIRUBIN,TOTAL 0.2 MG/DL (0.1-1.0); BLOOD UREA NITROGEN 107 MG/DL (7-18); BUN/CREATININE RATIO 20.2 (5.4-32.0); CALCIUM 8.3 MG/DL (8.5-10.1); CHLORIDE 98 MMOL/L (99-107); CREATININE 5.31 MG/DL (0.60-1.10); GLUCOSE 122 MG/DL (70-104); MAGNESIUM 2.5 MG/DL (1.5-2.4); PHOSPHORUS 8.6 MG/DL (2.3-4.5); POTASSIUM 3.4 MMOL/L (3.5-5.1); SODIUM 138 MMOL/L (135-145); TOTAL CARBON DIOXIDE 20.6 MMOL/L (24-32); TOTAL PROTEIN 5.4 G/DL (6.4-8.2); eGFR 12 ML/MIN
[2022-05-31 11:16] LABS: TOTAL CELLS COUNTED 100
[2022-05-31 11:17] LABS: ELLIPTOCYTES FEW; MICROCYTOSIS 1+; PLATELET ESTIMATE INCREASED
[2022-05-31] MEDS ORDERED: LIDOcaine 1% 30ml preserv. free vial IJ STA (11:24)
[2022-05-31] MEDS ORDERED: MIDAZolam 1mg/ml 10ml vial IV ONE (11:25)
--- NOTE | 2022-05-31 12:00 | NUR ---
TRANSPORTED TO SHORT STAY FOR RENAL BIOPSY SCHEDULED
--- NOTE | 2022-05-31 14:34 | NUR ---
Pt found in room with all monitoring leads off and bp cuff off standing at end of bed with siderails up on gurnya. Pt informed of need to lie down post procedure for good healing of biopsy site. Pt appeared reticent to follow directions. Stated that "I was told that I can get up after one hour and one hour is up." Clarified statement to pt "Pt could go upstairs after one hour". Addendum: 05/31/22 at 1607 by Jonathon Bennett RN Amended: Links added.
--- NOTE | 2022-05-31 14:45 | NUR ---
Telephone report given to Artis MADDEN. Pt taken back to room 347B via W/C. Once in room pt jumped out of chair and went to bed. Spouse in room. Artis MADDEN notified. Addendum: 05/31/22 at 1607 by Jonathon Bennett RN Amended: Links added.
--- NOTE | 2022-05-31 14:55 | NUR ---
RETURNED FROM SHORT STAY, GOT REPORT THAT HE WA NON COMPLIANT WITH REST ORDERS WHILE RECOVERING. ALIZE REID ATTEMPTED TO SETUP POST OP VS PER DR LANDEROS ORDERS. PT REFUSED I BEGAN TO EXPLAIN TO PATIENT WHYIT WAS IMPORTANT TO ASSESS HIS VS. I REQUESTED HE CONTINUE TO COOPERATE WITH SO WE CAN CONTINUE TO TREAT HIM. HE BECAME VERY AGITATED WHICH LED HIM TO LUNGING FORWARD WITH CLENCHED FISTS, RAISING HIS VOICE YELLING "I AM NOT GOING TO COOPERATE, I AM NOT GETTING BETTER AND IM DONE WITH ALL OF THIS. THE MEDS, TESTS, EVERYTIHING." WAS AT BEDSIDE AND WAS ATTEMPTING TO CALM HIM DOWN, WHICH WAS INEFFECTIVE. AT THIS POINT I TOLD HIM IF HE CONTINUED TO BEHAVE AGGRESSIVELY, I WOULD CALL SECURITY, THAT HE WAS MAKING ME QUESTION MY SAFETY STANDING AT HIS BEDSIDE. HE CALMED DOWN, I TOLD HIM THAT THIS WAS HIS ONLY CHANCE.
--- NOTE | 2022-05-31 15:20 | NUR ---
F/u 05/31: Pt PO improving ~73% avg renal diet up to 100% at times though partially meeting estimated needs given stature. Pt refusing all Nepro ONS; RISSA paged regarding cancelling ONS since waste at this time; MD return call up to window shade estimator since HD pt. RD d/w RN regarding cancelling ONS if window shade estimator agreeable. Noted Phos 8.6mg/dl this AM; RD d/w RN regarding Phos-binder w/ meals since on HD if MD agreeable. Pt NPO today for renal biopsy at procedure currently per EMR. Will add strawberry smoothie BIDLD to assist meeting estimated needs once PO diet returns; dietary notified. LBM 05/30. Will monitor for further nutrition intervention needs. Rec: 1. return to renal diet as medically indicated post-procedure; encourage PO 2. Nepro ONS TIDWM; cancel as pt refusing all to reduce supplement waste 3. strawberry smoothie BIDLD once PO diet returns 4. consider Phos-binder w/ meals on HD per physician discretion 5. bowel care per rx 6. scaled wts w/ HD Addendum: 05/31/22 at [address] Amended: Links added.
--- NOTE | 2022-05-31 16:00 | NUR ---
PATIENT HAS REMAINED CALM SINCE EARLIER ENCOUNTER. I HAVE EDUCATED PATIENT ABOUT OUR NEED TO COLLECT URINE, AND HIS NEED TO INFORM US WHEN HE VOIDS, HE STATED HE UNDERSTOOD, AT BEDSIDE AND IS ASSISTING IN FOLLOWING ANTONIO ORDERS
[2022-05-31 18:18] LABS: HEMATOCRIT 26.6 % (42.0-52.0); HEMOGLOBIN 8.7 g/dl (14.0-17.9); MEAN CORPUSCULAR HEMOGLOBIN 25.5 PG (27.0-31.0); MEAN CORPUSCULAR HGB CONC 32.7 g/dL (33.0-36.5); MEAN CORPUSCULAR VOLUME 78.1 FL (78-98); MEAN PLATELET VOLUME 7.2 FL (7.4-10.4); PLATELET COUNT 464 X10'3 (140-440); RED BLOOD COUNT 3.41 X10'6 (4.70-6.10); RED CELL DISTRIBUTION WIDTH 16.1 % (11.5-14.5)
[2022-05-31 18:31] LABS: WHITE BLOOD COUNT 29.6 X10'3 (4.5-11.0)
[2022-06-01] MEDS: methylPREDNISolone sod succ 125mg/2ml vial IV SCH ×3 (00:23→15:11)
--- NOTE | 2022-06-01 06:41 | NUR ---
Problems reprioritized. Patient report given, questions answered & plan of care reviewed with Artis. Addendum: 06/01/22 at 0642 by Mario Alberto Bradley RN Amended: Links added.
[2022-06-01 07:22] LABS: HEMATOCRIT 24.7 % (42.0-52.0); HEMOGLOBIN 8.3 g/dl (14.0-17.9); MEAN CORPUSCULAR HGB CONC 33.5 g/dL (33.0-36.5); MEAN CORPUSCULAR VOLUME 77.4 FL (78-98); MEAN PLATELET VOLUME 7.5 FL (7.4-10.4); PLATELET COUNT 400 X10'3 (140-440); RED BLOOD COUNT 3.19 X10'6 (4.70-6.10); RED CELL DISTRIBUTION WIDTH 15.9 % (11.5-14.5)
[2022-06-01 07:30] LABS: WHITE BLOOD COUNT 29.1 X10'3 (4.5-11.0)
[2022-06-01] MEDS: NIFEdipine XL 30mg tablet PO SCH (08:04)
[2022-06-01] MEDS: carvedilol 6.25mg tablet PO SCH ×2 (08:04→19:22)
[2022-06-01] MEDS: pantoprazole 40mg Tablet.DR PO SCH (08:04)
[2022-06-01] MEDS: NUT.TX.IMP.RENAL FXN,LAC-REDUC (Nepro) 237 ML VANILLA PO SCH ×3 (08:05→18:00)
[2022-06-01] MEDS ORDERED: normal saline 1000ml 250 ML IV PRN (08:05)
[2022-06-01] MEDS ORDERED: EPOETIN ALFA-EPBX 20,000 UNIT/ML 1 ML MDV IV ONE (08:05)
[2022-06-01] MEDS: heparin, porcine 5000 units/ml vial SQ SCH ×2 (08:05→19:22)
[2022-06-01] MEDS: nicotine 21mg patch - 24 hr TD SCH (08:05)
[2022-06-01] MEDS ORDERED: heparin 1,000unit/ml 10ml vial 10 ML IV ONE (08:05)
[2022-06-01] MEDS ORDERED: heparin 1,000 units/ml 10ml inj HE ONE ×2 (08:10)
[2022-06-01 08:11] LABS: ALBUMIN 2.3 G/DL (3.4-5.0); ANION GAP 17 (8-16); BLOOD UREA NITROGEN 120 MG/DL (7-18); BUN/CREATININE RATIO 21.6 (5.4-32.0); CALCIUM 7.2 MG/DL (8.5-10.1); CHLORIDE 100 MMOL/L (99-107); CREATININE 5.55 MG/DL (0.60-1.10); GLUCOSE 163 MG/DL (70-104); POTASSIUM 3.3 MMOL/L (3.5-5.1); SODIUM 136 MMOL/L (135-145); TOTAL CARBON DIOXIDE 18.9 MMOL/L (24-32); eGFR 11 ML/MIN
[2022-06-01 10:00] VITALS: BP 141/82
[2022-06-01 13:30] VITALS: BP 149/98
[2022-06-01 15:14] LABS: HEP B CORE AB, TOT Negative (Negative); HEPATITIS C ANTIBODY <0.1 s/co ratio (0.0-0.9)
[2022-06-01 18:00] VITALS: BP 146/74
--- NOTE | 2022-06-01 18:20 | NUR ---
Patient in room [facility] 347. I have received report from MARYANNE Wisdom and had the opportunity to ask questions and assume patient care.
[2022-06-01 22:00] VITALS: BP 160/89
[2022-06-02] VITALS (7 sets, daily range): BP systolic 108–164; BP diastolic 67–99
[2022-06-02] MEDS: methylPREDNISolone sod succ 125mg/2ml vial IV SCH ×2 (00:34→08:36)
--- NOTE | 2022-06-02 07:11 | NUR ---
Problems reprioritized. Patient report given, questions answered & plan of care reviewed with MARYANNE Morris.
[2022-06-02] MEDS: heparin, porcine 5000 units/ml vial SQ SCH (08:39)
[2022-06-02] MEDS: NUT.TX.IMP.RENAL FXN,LAC-REDUC (Nepro) 237 ML VANILLA PO SCH (08:43)
[2022-06-02] MEDS: NIFEdipine XL 30mg tablet PO SCH (08:43)
[2022-06-02] MEDS: pantoprazole 40mg Tablet.DR PO SCH (08:44)
[2022-06-02] MEDS: carvedilol 6.25mg tablet PO SCH (08:44)
[2022-06-02] MEDS: nicotine 21mg patch - 24 hr TD SCH (08:47)
[2022-06-02] MEDS ORDERED: LIDOcaine 1% 30ml preserv. free vial ONE (10:52)
[2022-06-02] MEDS ORDERED: fentaNYL/PF 50MCG/1 ML 2ML syringe ONE (11:30)
[2022-06-02] MEDS ORDERED: heparin 1,000unit/ml 10ml vial 10 ML ONE (11:31)
[2022-06-02] MEDS ORDERED: NICO-687 TD (13:02)
[2022-06-07 11:43] LABS: ANTISTREPTOLYSIN O AB 77.1
== END 2022-06-02 15:37 | disposition home or self-care (01) | DRG 291 ==
LOC: ER 20:28 → ED HOLD 05-23 00:44 → SUR 3N 05-23 11:10
PROVIDERS: ADMIT Family Medicine; ATTEND Internal Medicine
PROC: 02HV33Z Insertion of Infusion Device into Superior Vena Cava, Percutaneous Approach (ICD-10-PCS; 2022-05-26)
PROC: B548ZZA Ultrasonography of Superior Vena Cava, Guidance (ICD-10-PCS; 2022-05-26)
PROC: 5A1D70Z Performance of Urinary Filtration, Intermittent, Less than 6 Hours Per Day (ICD-10-PCS; 2022-05-26)
PROC: 5A1D70Z Performance of Urinary Filtration, Intermittent, Less than 6 Hours Per Day (ICD-10-PCS; 2022-05-27)
PROC: 5A1D70Z Performance of Urinary Filtration, Intermittent, Less than 6 Hours Per Day (ICD-10-PCS; 2022-05-29)
PROC: 0TB13ZX Excision of Left Kidney, Percutaneous Approach, Diagnostic (ICD-10-PCS; principal; 2022-05-31)
PROC: 5A1D70Z Performance of Urinary Filtration, Intermittent, Less than 6 Hours Per Day (ICD-10-PCS; 2022-06-01)
PROC: 0JH63XZ Insertion of Tunneled Vascular Access Device into Chest Subcutaneous Tissue and Fascia, Percutaneous Approach (ICD-10-PCS; 2022-06-02)
PROC: 02HV33Z Insertion of Infusion Device into Superior Vena Cava, Percutaneous Approach (ICD-10-PCS; 2022-06-02)
PROC: B548ZZA Ultrasonography of Superior Vena Cava, Guidance (ICD-10-PCS; 2022-06-02)
PROC: B5181ZA Fluoroscopy of Superior Vena Cava using Low Osmolar Contrast, Guidance (ICD-10-PCS; 2022-06-02)
DX: I13.2 Hypertensive heart and chronic kidney disease with heart failure and with stage 5 chronic kidney disease, or end stage renal disease (principal); N18.6 End stage renal disease; E44.0 Moderate protein-calorie malnutrition; E87.20 Acidosis, unspecified; N17.9 Acute kidney failure, unspecified; D50.9 Iron deficiency anemia, unspecified; I50.22 Chronic systolic (congestive) heart failure; Z20.822 Contact with and (suspected) exposure to COVID-19; Z66 Do not resuscitate; M25.511 Pain in right shoulder; M54.2 Cervicalgia; R80.9 Proteinuria, unspecified; F17.220 Nicotine dependence, chewing tobacco, uncomplicated; D63.8 Anemia in other chronic diseases classified elsewhere; D72.829 Elevated white blood cell count, unspecified; D75.839 Thrombocytosis, unspecified; E83.39 Other disorders of phosphorus metabolism; E88.09 Other disorders of plasma-protein metabolism, not elsewhere classified; I25.10 Atherosclerotic heart disease of native coronary artery without angina pectoris; I77.82 Antineutrophilic cytoplasmic antibody [ANCA] vasculitis; J44.9 Chronic obstructive pulmonary disease, unspecified; N28.89 Other specified disorders of kidney and ureter; R31.29 Other microscopic hematuria; T38.0X5A Adverse effect of glucocorticoids and synthetic analogues, initial encounter; I25.2 Old myocardial infarction; Z68.28 Body mass index [BMI] 28.0-28.9, adult; Z86.16 Personal history of COVID-19; Z79.899 Other long term (current) drug therapy; Z71.6 Tobacco abuse counseling; Y92.89 Other specified places as the place of occurrence of the external cause
CPT/HCPCS: 36415; 36556; 36558; 71045; 74176; 76700; 76937; 76942; 77001; 80048; 80053; 80061; 80305; 81001; 82550; 82570; 83036; 83605; 83615; 83690; 83735; 83880; 84100; 84145; 84156; 84300; 84484; 85007; 85025; 85027; 85576; 85610; 85730; 86038; 86060; 86256; 86430; 86592; 86704; 86706; 86803; 86885; 86900; 86901; 86920; 87040; 87081; 87207; 87340; 87811; 90935; 97116; 99285; A4421; A4620; A6258; A6402; A6449; A9270; C1750; C1751; C1769; C1894; E1594; G0257; G0378; J0360; J1170; J1644; J2250; J2270; J2405; J2543; J2930; J3010; J3490; J7030; J7120; Q4081

== ENCOUNTER 2022-07-14 14:04 | Outpatient (CLI) | payer BC ==
[~2022-07-14 14:04] MED LIST: CARV6.253 PO; NICO-687 TD; NIFE-34 PO
== END 2022-07-14 23:59 | disposition home or self-care (01) ==
LOC: VAS 14:04
PROVIDERS: ATTEND Surgery
DX: Z01.818 Encounter for other preprocedural examination (principal); N19 Unspecified kidney failure
CPT/HCPCS: 93930; 93970

== ENCOUNTER 2022-08-04 07:32 | Day surgery (SDC) | payer BC ==
[2022-07-30 14:52] LABS: BASOPHILS % (AUTO) 0.3 % (0-1); EOSINOPHILS # (AUTO) 0.1 X10'3 (0-0.9); EOSINOPHILS % (AUTO) 1.8 % (0-6); LYMPHOCYTES # (AUTO) 1.7 X10'3 (1.1-4.8); LYMPHOCYTES % (AUTO) 20.4 % (21-51); MEAN CORPUSCULAR HEMOGLOBIN 27.5 PG (27.0-31.0); MEAN CORPUSCULAR HGB CONC 33.4 g/dL (33.0-36.5); MEAN CORPUSCULAR VOLUME 82.5 FL (78-98); MEAN PLATELET VOLUME 6.8 FL (7.4-10.4); MONOCYTES # (AUTO) 0.4 X10'3 (0-0.9); MONOCYTES % (AUTO) 5.4 % (2-12); NEUTROPHILS # (AUTO) 5.9 X10'3 (1.8-7.7); NEUTROPHILS % (AUTO) 72.1 % (42-75); PRE OP HEMATOCRIT 42.2 % (42.0-52.0); PRE OP HEMOGLOBIN 14.1 g/dL (14.0-17.9); PRE OP PLATELET COUNT 329 X10'3 (140-440); RED BLOOD COUNT 5.11 X10'6 (4.70-6.10); RED CELL DISTRIBUTION WIDTH 16.5 % (11.5-14.5)
[2022-07-30 15:02] LABS: ALKALINE PHOSPHATASE 86 IU/L (46-116); BLOOD UREA NITROGEN 42 MG/DL (7-18); CALCIUM 9.5 MG/DL (8.5-10.1); CHLORIDE 102 MMOL/L (99-107); CREATININE 5.22 MG/DL (0.60-1.10); PRE OP ALT 19 U/L (30-65); PRE OP ANION GAP 10 (8-16); PRE OP AST 18 U/L (10-37); PRE OP BILIRUB, TOTAL 0.3 MG/DL (0.0-1.0); PRE OP GLUCOSE 197 MG/DL (70-104); PRE OP POTASSIUM 3.5 MMOL/L (3.4-5.1); PRE OP SODIUM 141 MMOL/L (135-145); TOTAL CARBON DIOXIDE 28.7 MMOL/L (24-32); TOTAL PROTEIN 8.1 G/DL (6.4-8.2); eGFR 12 ML/MIN
[~2022-08-04] VITALS: Ht 182.9 cm; Wt 105.0 kg
[2022-08-04] VITALS (12 sets, daily range): BP systolic 134–150; BP diastolic 91–107
[~2022-08-04 07:32] MED LIST changes: +CARV3.122 PO; -CARV6.253 PO; -NICO-687 TD; +cefazolin 2gm/D5W 100mL 100 ML IV ONE; +famotidine 20mg tablet PO ONE; +ringers solution, lacted 1,000 ML IV SCH
[2022-08-04] MEDS ORDERED: meperidine/PF 25mg/ml syringe IV PRN ×3 (09:20)
[2022-08-04] MEDS ORDERED: proCHLORperazine 10 MG/2 ml inj IV PRN (09:20)
[2022-08-04] MEDS ORDERED: morphine 2 MG/ML inj. syringe IV PRN (09:20)
[2022-08-04] MEDS ORDERED: ringers solution, lacted 1,000 ML IV SCH (09:20)
[2022-08-04] MEDS ORDERED: ondansetron/PF 4mg/2ml inj IV PRN (09:20)
[2022-08-04 09:39] LABS: ISTAT CREATININE 5.3 mg/dL (0.8-1.3); ISTAT HGB 12.9 g/dl (14.0-17.9); ISTAT IONIZED CALCIUM 1.21 mmol/L (1.03-1.32); POC BUN/CREATININE RATIO 8.1 (5.4-32.0)
[2022-08-04] MEDS ORDERED: heparin sodium, porcine/PF 100unit/ml 5ML syringe ONE (10:09)
[2022-08-04] MEDS ORDERED: BUPIVAcaine/PF 2.5 mg/ml (0.25%) 30ml vial ONE (10:09)
[2022-08-04] MEDS ORDERED: mupirocin 2% ointment 22GM ONE (10:10)
[2022-08-04] MEDS ORDERED: fentaNYL/PF 50MCG/1 ML 2ML syringe ONE (10:26)
[2022-08-04] MEDS ORDERED: midazolam 1 mg/ML 2ml injection ONE (10:27)
[2022-08-04] MEDS ORDERED: dexamethasone sod phosphate 10mg/ml inj ONE (10:32)
[2022-08-04] MEDS ORDERED: desflurane 240ml liquid inh. IH ONE (10:32)
[2022-08-04] MEDS ORDERED: neostigmine methylsulfate 1 MG/ML 10ml vial ONE (10:32)
[2022-08-04] MEDS ORDERED: LIDOcaine 2% (20mg/ml) 5ml vial ONE (10:51)
[2022-08-04] MEDS ORDERED: propofol inj 20 ML IV ONE (10:51)
[2022-08-04] MEDS ORDERED: rocuronium 10mg/ml inj IV ONE (10:51)
[2022-08-04] MEDS ORDERED: ondansetron/PF 4mg/2ml inj ONE (11:22)
[2022-08-04] MEDS ORDERED: BUPIVAcaine/PF 2.5 mg/ml (0.25%) 30ml vial IJ ONE (11:23)
[2022-08-04] MEDS ORDERED: heparin sodium, porcine/PF 100unit/ml 5ML syringe IV ONE (11:25)
[2022-08-04] MEDS ORDERED: acetaminophen 1,000mg/100ml IV 100 ML IV ONE (11:31)
[2022-08-04] MEDS ORDERED: glycopyrrolate 0.2mg/ml inj ONE (11:52)
--- NOTE | 2022-08-04 11:59 | NUR ---
Received from OR via DRE TO ROOM 7, accompanied by Anesthesiologist DR CASTELLANO and report given by Anesthesiolgist. PT PRESENTS WITH PIV 20G RIGHT HAND, ABD DRESSING CDI, DERMABOND X 3 ON ABD, VSS. Addendum: 08/04/22 at 1221 by Opal Harris RN, RN Amended: Links added.
[2022-08-04] MEDS: morphine 4 MG/ML inj SYRINge IV PRN ×2 (12:05→12:14)
[2022-08-04] MEDS ORDERED: HYDROcodone/acetaminophen 10/325mg tab PO ONE (13:00)
--- NOTE | 2022-08-04 13:39 | NUR ---
ALL DISCHARGE CRITERIA HAS BEEN MET. VSS, PAIN AT A TOLERABLE LEVEL, VOIDING AND ABLE TO SAFELY AMBULATE AND TRANSFER SELF. IV TAKEN OUT WITHOUT ANY COMPLICATIONS. ALL DISCHARGE INSTRUCTIONS COVERED WITH PATIENT AND ALL QUESTIONS ANSWERED. PATIENT TAKEN OUT VIA WHEELCHAIR TO PERSONAL VEHICLE WHERE FAMILY/FRIEND DROVE PATIENT HOME. Addendum: 08/04/22 at 1348 by Opal Harris RN, RN Amended: Links added.
== END 2022-08-04 13:39 | disposition home or self-care (01) ==
LOC: PAS 07:32
PROVIDERS: ATTEND Surgery
DX: I12.0 Hypertensive chronic kidney disease with stage 5 chronic kidney disease or end stage renal disease (principal); N18.6 End stage renal disease; K42.0 Umbilical hernia with obstruction, without gangrene; F17.220 Nicotine dependence, chewing tobacco, uncomplicated; E66.9 Obesity, unspecified; Z68.31 Body mass index [BMI] 31.0-31.9, adult; Z86.16 Personal history of COVID-19; Z79.899 Other long term (current) drug therapy; Z98.890 Other specified postprocedural states
CPT/HCPCS: 36415; 49324; 49592; 71045; 80047; 80053; 82948; 85025; 93005; C1750; J0131; J1642; J2175; J2250; J2270; J2405; J2704; J3010; J3490; J7030; J7040; J7120; Z7506; Z7508; Z7512; A4215; A4618; A6402; A6449; A7000; J0690; J1100; J2710

== ENCOUNTER 2022-10-06 09:01 | Day surgery (SDC) | payer BC ==
[2022-10-05 14:21] LABS: BASOPHILS # (AUTO) 0.1 X10'3 (0-0.2); BASOPHILS % (AUTO) 0.7 % (0-1); EOSINOPHILS # (AUTO) 0.4 X10'3 (0-0.9); EOSINOPHILS % (AUTO) 5.1 % (0-6); LYMPHOCYTES # (AUTO) 2.1 X10'3 (1.1-4.8); LYMPHOCYTES % (AUTO) 24.4 % (21-51); MEAN CORPUSCULAR HGB CONC 33.3 g/dL (33.0-36.5); MEAN CORPUSCULAR VOLUME 81.1 FL (78-98); MEAN PLATELET VOLUME 6.6 FL (7.4-10.4); MONOCYTES # (AUTO) 0.8 X10'3 (0-0.9); MONOCYTES % (AUTO) 9.3 % (2-12); NEUTROPHILS # (AUTO) 5.1 X10'3 (1.8-7.7); NEUTROPHILS % (AUTO) 60.5 % (42-75); PRE OP HEMATOCRIT 38.7 % (42.0-52.0); PRE OP HEMOGLOBIN 12.9 g/dL (14.0-17.9); PRE OP PLATELET COUNT 422 X10'3 (140-440); RED BLOOD COUNT 4.77 X10'6 (4.70-6.10); RED CELL DISTRIBUTION WIDTH 15.4 % (11.5-14.5)
[2022-10-05 14:22] LABS: CLARITY,URINE CLEAR (Clear); COLOR,URINE YELLOW (Yellow); GLUCOSE, URINE NEGATIVE (Neg); KETONES,URINE NEGATIVE (Neg); LEUKOCYTE ESTERASE ,URINE NEGATIVE (Neg); NITRITES, URINE NEGATIVE (Neg); OCCULT BLOOD,URINE NEGATIVE (Neg); PROTEIN,URINE 100 mg/dl (Neg); UROBILINOGEN,URINE 0.2 E.U/dL (0.2-1.0)
[2022-10-05 14:28] LABS: UA COLLECTION TYPE CLN CATCH MIDSTREAM
[2022-10-05 14:30] LABS: BACTERIA,URINE FEW /HPF (Neg); MUCUS STRANDS FEW /LPF (Neg); RBC,URINE NONE SEEN /HPF (0-2); SQUAMOUS EPITHELIAL CELL,UR MODERATE /LPF (FEW); WBC,URINE 0-4 /HPF (0-4)
[2022-10-05 14:41] LABS: ALBUMIN 3.6 G/DL (3.4-5.0); ALBUMIN/GLOBULIN RATIO 0.8 (1.1-1.5); ALKALINE PHOSPHATASE 90 IU/L (46-116); BLOOD UREA NITROGEN 35 MG/DL (7-18); BUN/CREATININE RATIO 5.8 (10.0-20.0); CALCIUM 9.2 MG/DL (8.5-10.1); CHLORIDE 98 MMOL/L (99-107); CREATININE 6.05 MG/DL (0.60-1.10); PRE OP ALT 13 U/L (30-65); PRE OP ANION GAP 13 (8-16); PRE OP AST 14 U/L (10-37); PRE OP BILIRUB, TOTAL 0.3 MG/DL (0.0-1.0); PRE OP GLUCOSE 101 MG/DL (70-104); PRE OP POTASSIUM 3.7 MMOL/L (3.4-5.1); PRE OP SODIUM 139 MMOL/L (135-145); TOTAL CARBON DIOXIDE 28.3 MMOL/L (24-32); TOTAL PROTEIN 7.9 G/DL (6.4-8.2); eGFR 10 ML/MIN
[~2022-10-06] VITALS: Ht 182.9 cm; Wt 81.6 kg
[2022-10-06] VITALS (10 sets, daily range): BP systolic 133–166; BP diastolic 94–109
[~2022-10-06 09:01] MED LIST changes: -CARV3.122 PO; +CARV6.2553 PO; +DOCUMENT DATE & TIME OF BETA-BLOCKER PO ONE; -NIFE-34 PO; +NIFE90TA44 PO; +normal saline 1000ml 1,000 ML IV SCH; -ringers solution, lacted 1,000 ML IV SCH
[2022-10-06] MEDS ORDERED: heparin sodium, porcine/PF 100unit/ml 5ML syringe ONE (09:18)
[2022-10-06] MEDS ORDERED: BUPIVAcaine/PF 2.5 mg/ml (0.25%) 30ml vial ONE (09:18)
[2022-10-06] MEDS ORDERED: mupirocin 2% ointment 22GM ONE (09:19)
[2022-10-06] MEDS ORDERED: dexamethasone sod phosphate 10mg/ml inj ONE (10:30)
[2022-10-06] MEDS ORDERED: desflurane 240ml liquid inh. IH ONE (10:30)
[2022-10-06] MEDS ORDERED: glycopyrrolate 0.2mg/ml inj ONE (10:30)
[2022-10-06] MEDS ORDERED: neostigmine methylsulfate 1 MG/ML 10ml vial ONE (10:30)
[2022-10-06] MEDS ORDERED: sugammadex 200mg/2ml injection IV ONE (10:32)
[2022-10-06] MEDS ORDERED: midazolam 1 mg/ML 2ml injection ONE (10:37)
[2022-10-06] MEDS ORDERED: fentaNYL/PF 50MCG/1 ML 2ML syringe ONE ×2 (10:37→11:17)
[2022-10-06] MEDS ORDERED: propofol inj 20 ML IV ONE (10:39)
[2022-10-06] MEDS ORDERED: LIDOcaine 2% (20mg/ml) 5ml vial ONE (10:39)
[2022-10-06] MEDS ORDERED: rocuronium 10mg/ml inj IV ONE ×2 (10:39→10:58)
[2022-10-06] MEDS ORDERED: ondansetron/PF 4mg/2ml inj ONE (10:46)
[2022-10-06] MEDS ORDERED: enalaprilat dihydrate 2.5mg/2ml vial IV PRN (11:05)
[2022-10-06] MEDS ORDERED: morphine 2 MG/ML inj. syringe IV PRN (11:05)
[2022-10-06] MEDS ORDERED: ringers solution, lacted 1,000 ML IV SCH (11:05)
[2022-10-06] MEDS ORDERED: ondansetron/PF 4mg/2ml inj IV PRN (11:05)
[2022-10-06] MEDS ORDERED: fentaNYL/PF 50MCG/1 ML 2ML syringe IV PRN (11:05)
[2022-10-06] MEDS ORDERED: labetalol 20mg/4ml (5mg/ml) syringe IV PRN (11:05)
--- NOTE | 2022-10-06 11:25 | NUR ---
Received from OR via DRE , accompanied by Anesthesiologist and report given by KELLIE Anesthesiologist. PATIENT WAKING UP, NO S/S OF PAIN, V/S WNL, PIV 20G LEFT HAND, ABDOMEN DRESSING C/D/I. Addendum: 10/06/22 at 1207 by Tadeo Prajapati RN Amended: Links added.
[2022-10-06] MEDS: morphine 4 MG/ML inj SYRINge IV PRN ×2 (11:32→11:45)
[2022-10-06] MEDS: fentaNYL/PF 50MCG/1 ML 2ML syringe IV PRN ×2 (11:37→11:44)
[2022-10-06] MEDS ORDERED: HYDROcodone/acetaminophen 10/325mg tab PO ONE (11:53)
[2022-10-06] MEDS ORDERED: acetaminophen 1,000mg/100ml IV 100 ML IV ONE (11:55)
--- NOTE | 2022-10-06 12:12 | NUR ---
CALLED DR. KWOK ABOUT SEVERE PAIN ON CHEST AND BILATERAL SHOULDER. PATIENT STATED THAT "SOMETHING IS NOT RIGHT". TOV ORDERED EKG STAT.
--- NOTE | 2022-10-06 12:15 | NUR ---
BORIS (SOFTWARE APPLICATIONS DEVELOPER) CAME TO PERFORM 12-LEADS EKG TEST. EKG REPORT STATED SINUS RHYTHM.
--- NOTE | 2022-10-06 12:45 | NUR ---
ALL DISCHARGE CRITERIA HAS BEEN MET. VSS, PAIN AT A TOLERABLE LEVEL, ABLE TO SAFELY AMBULATE AND TRANSFER SELF. IV TAKEN OUT WITHOUT ANY COMPLICATIONS. ALL DISCHARGE INSTRUCTIONS COVERED WITH PATIENT AND ALL QUESTIONS ANSWERED. PATIENT TAKEN OUT VIA WHEELCHAIR WITH ALL BELONGINGS TO PERSONAL VEHICLE WHERE FAMILY DROVE PATIENT HOME. Addendum: 10/06/22 at 1300 by Tadeo Prajapati RN Amended: Links added.
[2022-10-07] MEDS ORDERED: SULF1TAB49 PO ×2 (13:56)
[2022-10-07] MEDS ORDERED: AMOX-117 PO ×2 (13:56)
[2022-10-07] MEDS ORDERED: OXYC-150 PO ×2 (13:56)
== END 2022-10-06 12:45 | disposition home or self-care (01) ==
LOC: PAS 09:01
PROVIDERS: ATTEND Surgery
DX: I12.0 Hypertensive chronic kidney disease with stage 5 chronic kidney disease or end stage renal disease (principal); N18.6 End stage renal disease; F17.220 Nicotine dependence, chewing tobacco, uncomplicated; F10.91 Alcohol use, unspecified, in remission; Z98.890 Other specified postprocedural states; Z79.899 Other long term (current) drug therapy
CPT/HCPCS: 36415; 49324; 80053; 81001; 82948; 85025; 93005; C1750; J0131; J0690; J1642; J2250; J2270; J2405; J2704; J3010; J3490; J7030; J7040; Z7506; Z7512; A4215; A4615; A4618; A6402; A6449; A7000; J1100; J2710

== ENCOUNTER 2022-10-07 08:34 | Inpatient (IN) | payer BC ==
[~2022-10-07] VITALS: Ht 182.9 cm; Wt 81.8 kg
[~2022-10-07 08:34] MED LIST changes: -DOCUMENT DATE & TIME OF BETA-BLOCKER PO ONE; -cefazolin 2gm/D5W 100mL 100 ML IV ONE; -famotidine 20mg tablet PO ONE; -normal saline 1000ml 1,000 ML IV SCH
[2022-10-07] MEDS ORDERED: morphine 4 MG/ML inj SYRINge IV ONE (10:25)
[2022-10-07 10:43] LABS: BASOPHILS # (AUTO) 0.1 X10'3 (0-0.2); BASOPHILS % (AUTO) 0.7 % (0-1); EOSINOPHILS # (AUTO) 0.1 X10'3 (0-0.9); EOSINOPHILS % (AUTO) 0.6 % (0-6); HEMATOCRIT 31.5 % (42.0-52.0); HEMOGLOBIN 10.5 g/dl (14.0-17.9); LYMPHOCYTES # (AUTO) 2.1 X10'3 (1.1-4.8); LYMPHOCYTES % (AUTO) 12.4 % (21-51); MEAN CORPUSCULAR HGB CONC 33.3 g/dL (33.0-36.5); MEAN CORPUSCULAR VOLUME 81.2 FL (78-98); MEAN PLATELET VOLUME 6.7 FL (7.4-10.4); MONOCYTES # (AUTO) 1.1 X10'3 (0-0.9); MONOCYTES % (AUTO) 6.3 % (2-12); NEUTROPHILS # (AUTO) 13.8 X10'3 (1.8-7.7); PLATELET COUNT 414 X10'3 (140-440); RED BLOOD COUNT 3.87 X10'6 (4.70-6.10); RED CELL DISTRIBUTION WIDTH 15.6 % (11.5-14.5); WHITE BLOOD COUNT 17.3 X10'3 (4.5-11.0)
[2022-10-07 10:57] LABS: ALANINE AMINOTRANSFERASE 9 U/L (12-78); ALBUMIN 3.5 G/DL (3.4-5.0); ALBUMIN/GLOBULIN RATIO 0.9 (1.1-1.5); ALKALINE PHOSPHATASE 71 IU/L (46-116); ANION GAP 13 (8-16); ASPARTATE AMINO TRANSFERASE 7 U/L (10-37); BILIRUBIN,TOTAL 0.3 MG/DL (0.1-1.0); BLOOD UREA NITROGEN 58 MG/DL (7-18); BUN/CREATININE RATIO 7.1 (10.0-20.0); CALCIUM 9.5 MG/DL (8.5-10.1); CHLORIDE 97 MMOL/L (99-107); CREATININE 8.18 MG/DL (0.60-1.10); GLUCOSE 119 MG/DL (70-104); POTASSIUM 4.3 MMOL/L (3.5-5.1); SODIUM 135 MMOL/L (135-145); TOTAL PROTEIN 7.5 G/DL (6.4-8.2); eGFR 7 ML/MIN
[2022-10-07] MEDS ORDERED: piperacillin/tazo 3.375gm/50ml 50 ML IV ONE (13:00)
[2022-10-07] MEDS ORDERED: vancomycin/NS 1 GM ADD-VANTAGE 250 ML IV ONE (13:00)
[2022-10-07] MEDS ORDERED: SULF1TAB49 PO ×2 (13:56)
[2022-10-07] MEDS ORDERED: AMOX-117 PO ×2 (13:56)
[2022-10-07] MEDS ORDERED: OXYC-150 PO ×2 (13:56)
[2022-10-07] MEDS ORDERED: morphine 4 MG/ML inj SYRINge IM ONE (17:55)
[2022-10-07] MEDS: morphine/NS 1 mg/ml 50ml CADD 50 ML IV SCH ×4 (19:00→23:06)
[2022-10-07] MEDS ORDERED: ondansetron/PF 4mg/2ml inj IV PRN (19:30)
--- NOTE | 2022-10-07 20:00 | NUR ---
pt on hospital bed.
[2022-10-07] MEDS: NIFEdipine XL 30mg tablet PO SCH (21:14)
[2022-10-08] MEDS: morphine/NS 1 mg/ml 50ml CADD 50 ML IV SCH ×12 (01:09→23:00)
[2022-10-08] MEDS ORDERED: piperacillin/tazo 3.375gm/50ml 50 ML IV ONE (01:30)
[2022-10-08 05:59] LABS: BASOPHILS % (AUTO) 0.1 % (0-1); EOSINOPHILS # (AUTO) 0.5 X10'3 (0-0.9); EOSINOPHILS % (AUTO) 5.1 % (0-6); HEMATOCRIT 26.4 % (42.0-52.0); HEMOGLOBIN 8.9 g/dl (14.0-17.9); LYMPHOCYTES # (AUTO) 1.7 X10'3 (1.1-4.8); LYMPHOCYTES % (AUTO) 16.5 % (21-51); MEAN CORPUSCULAR HEMOGLOBIN 27.4 PG (27.0-31.0); MEAN CORPUSCULAR HGB CONC 33.8 g/dL (33.0-36.5); MEAN PLATELET VOLUME 6.8 FL (7.4-10.4); MONOCYTES # (AUTO) 0.7 X10'3 (0-0.9); MONOCYTES % (AUTO) 7.1 % (2-12); NEUTROPHILS # (AUTO) 7.3 X10'3 (1.8-7.7); NEUTROPHILS % (AUTO) 71.2 % (42-75); PLATELET COUNT 299 X10'3 (140-440); RED BLOOD COUNT 3.26 X10'6 (4.70-6.10); RED CELL DISTRIBUTION WIDTH 15.4 % (11.5-14.5); WHITE BLOOD COUNT 10.3 X10'3 (4.5-11.0)
[2022-10-08 06:05] LABS: ALBUMIN/GLOBULIN RATIO 0.8 (1.1-1.5); ALKALINE PHOSPHATASE 63 IU/L (46-116); ANION GAP 12 (8-16); ASPARTATE AMINO TRANSFERASE 9 U/L (10-37); BILIRUBIN,TOTAL 0.3 MG/DL (0.1-1.0); BLOOD UREA NITROGEN 60 MG/DL (7-18); BUN/CREATININE RATIO 7.5 (10.0-20.0); CALCIUM 8.5 MG/DL (8.5-10.1); CHLORIDE 101 MMOL/L (99-107); CREATININE 7.96 MG/DL (0.60-1.10); GLUCOSE 101 MG/DL (70-104); MAGNESIUM 2.3 MG/DL (1.5-2.4); POTASSIUM 3.7 MMOL/L (3.5-5.1); SODIUM 138 MMOL/L (135-145); TOTAL CARBON DIOXIDE 24.6 MMOL/L (24-32); TOTAL PROTEIN 6.6 G/DL (6.4-8.2); eGFR 8 ML/MIN
--- NOTE | 2022-10-08 06:18 | NUR ---
pt sleeping at this time. no outward s\s distress noted.
[2022-10-08 06:20] LABS: ALANINE AMINOTRANSFERASE < 6 U/L (12-78)
--- NOTE | 2022-10-08 07:46 | NUR ---
murray at bedside for pt update on plan of care - verbal orders given for labs today at 1300 and tomorrow at 0600 - also admission order to be changed from outpatient to inpatient
[2022-10-08] MEDS ORDERED: carVEDilol 3.125mg tablet PO SCH (08:00)
[2022-10-08] MEDS: NIFEdipine XL 30mg tablet PO SCH ×2 (08:00→19:51)
--- NOTE | 2022-10-08 09:41 | NUR ---
ATTEMPTED TO CALL REPORT TO THE FLOOR - THE BED HASN'T BEEN ASSIGNED TO AN RN ON THAT FLOOR YET.
[2022-10-08 10:47] VITALS: BP 145/93
[2022-10-08] MEDS: PCA WASTE DOCUMENTATION 1 MG ML MC SCH (12:07)
[2022-10-08 13:06] LABS: BASOPHILS % (AUTO) 0.3 % (0-1); EOSINOPHILS # (AUTO) 0.5 X10'3 (0-0.9); EOSINOPHILS % (AUTO) 5.7 % (0-6); HEMATOCRIT 28.6 % (42.0-52.0); HEMOGLOBIN 9.8 g/dl (14.0-17.9); LYMPHOCYTES # (AUTO) 1.6 X10'3 (1.1-4.8); LYMPHOCYTES % (AUTO) 17.7 % (21-51); MEAN CORPUSCULAR HEMOGLOBIN 27.6 PG (27.0-31.0); MEAN CORPUSCULAR HGB CONC 34.2 g/dL (33.0-36.5); MEAN CORPUSCULAR VOLUME 80.8 FL (78-98); MEAN PLATELET VOLUME 6.3 FL (7.4-10.4); MONOCYTES # (AUTO) 0.7 X10'3 (0-0.9); MONOCYTES % (AUTO) 7.1 % (2-12); NEUTROPHILS # (AUTO) 6.4 X10'3 (1.8-7.7); NEUTROPHILS % (AUTO) 69.2 % (42-75); PLATELET COUNT 314 X10'3 (140-440); RED BLOOD COUNT 3.55 X10'6 (4.70-6.10); RED CELL DISTRIBUTION WIDTH 15.5 % (11.5-14.5); WHITE BLOOD COUNT 9.2 X10'3 (4.5-11.0)
[2022-10-08 13:20] LABS: ALANINE AMINOTRANSFERASE 6 U/L (12-78); ALBUMIN 3.3 G/DL (3.4-5.0); ALBUMIN/GLOBULIN RATIO 0.8 (1.1-1.5); ALKALINE PHOSPHATASE 66 IU/L (46-116); ANION GAP 12 (8-16); ASPARTATE AMINO TRANSFERASE 6 U/L (10-37); BILIRUBIN,TOTAL 0.2 MG/DL (0.1-1.0); BLOOD UREA NITROGEN 59 MG/DL (7-18); BUN/CREATININE RATIO 7.5 (10.0-20.0); CALCIUM 9.1 MG/DL (8.5-10.1); CHLORIDE 101 MMOL/L (99-107); CREATININE 7.88 MG/DL (0.60-1.10); GLUCOSE 103 MG/DL (70-104); POTASSIUM 3.7 MMOL/L (3.5-5.1); SODIUM 138 MMOL/L (135-145); TOTAL CARBON DIOXIDE 24.7 MMOL/L (24-32); TOTAL PROTEIN 7.2 G/DL (6.4-8.2); eGFR 8 ML/MIN
--- NOTE | 2022-10-08 16:00 | NUR ---
RN spoke to Flip on the phone and got a verbal order to lower continuous rate of CADD pump from 2.5mg per hour to 1.5 mg per hour. [employer] Jail[employer] also spoke with pharmacy and charge nurse to notify of change.
[2022-10-08] MEDS ORDERED: morphine/NS 1 mg/ml 50ml CADD 50 ML IV SCH (17:00)
[2022-10-08 18:00] VITALS: BP 158/98
--- NOTE | 2022-10-08 18:31 | NUR ---
Problems reprioritized. Patient report given, questions answered & plan of care reviewed with Bertram MADDEN.
--- NOTE | 2022-10-08 18:35 | NUR ---
Patient in room ORTHO 4021. I have received report from EUGENE MADDEN and had the opportunity to ask questions and assume patient care.
[2022-10-08] MEDS: carvedilol 6.25mg tablet PO SCH (19:51)
[2022-10-08] MEDS ORDERED: NIFEDIPINE PO SCH (20:00)
[2022-10-08 22:00] VITALS: BP 139/90
[2022-10-09] MEDS: morphine/NS 1 mg/ml 50ml CADD 50 ML IV SCH ×5 (01:00→09:00)
--- NOTE | 2022-10-09 06:24 | NUR ---
Problems reprioritized. Patient report given, questions answered & plan of care reviewed with DE MADDEN.
--- NOTE | 2022-10-09 06:37 | NUR ---
Patient in room ORTHO 4021. I have received report from Bertram and had the opportunity to ask questions and assume patient care.
[2022-10-09 06:38] VITALS: BP 162/86
[2022-10-09 07:25] LABS: BASOPHILS % (AUTO) 0.1 % (0-1); EOSINOPHILS # (AUTO) 0.6 X10'3 (0-0.9); EOSINOPHILS % (AUTO) 6.9 % (0-6); HEMATOCRIT 27.3 % (42.0-52.0); HEMOGLOBIN 9.4 g/dl (14.0-17.9); LYMPHOCYTES # (AUTO) 1.6 X10'3 (1.1-4.8); LYMPHOCYTES % (AUTO) 17.8 % (21-51); MEAN CORPUSCULAR HEMOGLOBIN 27.7 PG (27.0-31.0); MEAN CORPUSCULAR HGB CONC 34.3 g/dL (33.0-36.5); MEAN CORPUSCULAR VOLUME 80.9 FL (78-98); MEAN PLATELET VOLUME 7.1 FL (7.4-10.4); MONOCYTES # (AUTO) 0.7 X10'3 (0-0.9); MONOCYTES % (AUTO) 8.5 % (2-12); NEUTROPHILS # (AUTO) 5.9 X10'3 (1.8-7.7); NEUTROPHILS % (AUTO) 66.7 % (42-75); PLATELET COUNT 325 X10'3 (140-440); RED BLOOD COUNT 3.38 X10'6 (4.70-6.10); RED CELL DISTRIBUTION WIDTH 15.5 % (11.5-14.5); WHITE BLOOD COUNT 8.8 X10'3 (4.5-11.0)
[2022-10-09 07:45] LABS: ALANINE AMINOTRANSFERASE 7 U/L (12-78); ALBUMIN 3.2 G/DL (3.4-5.0); ALBUMIN/GLOBULIN RATIO 0.8 (1.1-1.5); ALKALINE PHOSPHATASE 62 IU/L (46-116); ANION GAP 10 (8-16); ASPARTATE AMINO TRANSFERASE 8 U/L (10-37); BILIRUBIN,TOTAL 0.3 MG/DL (0.1-1.0); BLOOD UREA NITROGEN 60 MG/DL (7-18); BUN/CREATININE RATIO 7.7 (10.0-20.0); CALCIUM 9.1 MG/DL (8.5-10.1); CHLORIDE 103 MMOL/L (99-107); CREATININE 7.79 MG/DL (0.60-1.10); GLUCOSE 94 MG/DL (70-104); POTASSIUM 3.8 MMOL/L (3.5-5.1); SODIUM 138 MMOL/L (135-145); TOTAL PROTEIN 7.1 G/DL (6.4-8.2); eGFR 8 ML/MIN
[2022-10-09] MEDS: carvedilol 6.25mg tablet PO SCH (08:30)
[2022-10-09] MEDS: NIFEdipine XL 30mg tablet PO SCH (08:30)
[2022-10-09] MEDS: PCA WASTE DOCUMENTATION 1 MG ML MC SCH (10:39)
--- NOTE | 2022-10-09 10:42 | NUR ---
Reviewed discharge instructions with patient and spouse. Patient verbalized understanding. Patient was dressed, gathered his belongings and walked downstairs to be driven home by his spouse. Patient lives in [place] so they were anxious to get on the road.
== END 2022-10-09 10:25 | disposition home or self-care (01) | DRG 947 ==
LOC: ER 08:34 → ED HOLD 19:39 → OBSVTOIN 10-08 07:44 → ORTHO 4S 10-08 10:40
PROVIDERS: ADMIT Surgery; ATTEND Surgery
DX: G89.18 Other acute postprocedural pain (principal); K66.1 Hemoperitoneum; N18.6 End stage renal disease; I25.2 Old myocardial infarction; Z99.2 Dependence on renal dialysis
CPT/HCPCS: 36415; 74176; 80053; 83735; 84145; 85025; 87040; 99285; G0378; J2270; J2543; J3370

== ENCOUNTER 2022-10-19 15:15 | Day surgery (SDC) | payer BC ==
[~2022-10-19] VITALS: Ht 182.9 cm; Wt 97.7 kg
[2022-10-19] VITALS (8 sets, daily range): BP systolic 123–169; BP diastolic 90–110
[~2022-10-19 15:15] MED LIST changes: -NIFE90TA44 PO; +NIFE90TA70 PO
[2022-10-19] MEDS ORDERED: DOCUMENT DATE & TIME OF BETA-BLOCKER PO ONE (16:11)
[2022-10-19 16:12] LABS: ALANINE AMINOTRANSFERASE 18 U/L (12-78); ALBUMIN 3.4 G/DL (3.4-5.0); ALBUMIN/GLOBULIN RATIO 0.9 (1.1-1.5); ALKALINE PHOSPHATASE 72 IU/L (46-116); ANION GAP 10 (8-16); ASPARTATE AMINO TRANSFERASE 14 U/L (10-37); BILIRUBIN,TOTAL 0.4 MG/DL (0.1-1.0); BLOOD UREA NITROGEN 40 MG/DL (7-18); BUN/CREATININE RATIO 6.9 (10.0-20.0); CHLORIDE 103 MMOL/L (99-107); CREATININE 5.79 MG/DL (0.60-1.10); GLUCOSE 99 MG/DL (70-104); POTASSIUM 4.2 MMOL/L (3.5-5.1); SODIUM 140 MMOL/L (135-145); TOTAL PROTEIN 7.3 G/DL (6.4-8.2); eGFR 11 ML/MIN
[2022-10-19] MEDS ORDERED: famotidine 20mg tablet PO ONE (16:20)
[2022-10-19] MEDS ORDERED: cefazolin 2gm/D5W 100mL 100 ML IV ONE (16:20)
[2022-10-19 16:49] LABS: BASOPHILS % (AUTO) 0.1 % (0-1); EOSINOPHILS # (AUTO) 0.2 X10'3 (0-0.9); EOSINOPHILS % (AUTO) 2.2 % (0-6); HEMOGLOBIN 10.2 g/dl (14.0-17.9); LYMPHOCYTES # (AUTO) 1.6 X10'3 (1.1-4.8); LYMPHOCYTES % (AUTO) 15.3 % (21-51); MEAN CORPUSCULAR HEMOGLOBIN 27.3 PG (27.0-31.0); MEAN CORPUSCULAR HGB CONC 32.8 g/dL (33.0-36.5); MEAN CORPUSCULAR VOLUME 83.2 FL (78-98); MEAN PLATELET VOLUME 6.7 FL (7.4-10.4); MONOCYTES # (AUTO) 0.8 X10'3 (0-0.9); MONOCYTES % (AUTO) 7.4 % (2-12); NEUTROPHILS # (AUTO) 7.9 X10'3 (1.8-7.7); PLATELET COUNT 378 X10'3 (140-440); RED BLOOD COUNT 3.73 X10'6 (4.70-6.10); RED CELL DISTRIBUTION WIDTH 16.2 % (11.5-14.5); WHITE BLOOD COUNT 10.5 X10'3 (4.5-11.0)
[2022-10-19] MEDS ORDERED: rocuronium 10mg/ml inj IV ONE (18:08)
[2022-10-19] MEDS ORDERED: midazolam 1 mg/ML 2ml injection ONE (18:08)
[2022-10-19] MEDS ORDERED: fentaNYL/PF 50MCG/1 ML 2ML syringe ONE (18:08)
[2022-10-19] MEDS ORDERED: propofol inj 20 ML IV ONE (18:08)
[2022-10-19] MEDS ORDERED: ondansetron/PF 4mg/2ml inj IV PRN (18:10)
[2022-10-19] MEDS ORDERED: morphine 2 MG/ML inj. syringe IV PRN (18:10)
[2022-10-19] MEDS ORDERED: ringers solution, lacted 1,000 ML IV SCH (18:10)
[2022-10-19] MEDS ORDERED: meperidine/PF 25mg/ml syringe IV PRN ×3 (18:10)
[2022-10-19] MEDS ORDERED: proCHLORperazine 10 MG/2 ml inj IV PRN (18:10)
[2022-10-19] MEDS ORDERED: heparin sodium, porcine/PF 100unit/ml 5ML syringe ONE (18:20)
[2022-10-19] MEDS ORDERED: BUPIVAcaine/PF 2.5mg/ml (0.25%) 10ml vial ONE (18:21)
[2022-10-19] MEDS ORDERED: dexamethasone sod phosphate 4mg/ml inj. ONE (18:24)
[2022-10-19] MEDS ORDERED: BUPIVAcaine/PF 2.5mg/ml (0.25%) 10ml vial IJ ONE (18:44)
[2022-10-19] MEDS ORDERED: heparin sodium, porcine/PF 100unit/ml 5ML syringe IV ONE (18:44)
[2022-10-19] MEDS ORDERED: bacitracin 15gm ointment TP ONE (18:46)
[2022-10-19] MEDS ORDERED: glycopyrrolate 0.2mg/ml inj ONE (18:52)
[2022-10-19] MEDS ORDERED: ondansetron/PF 4mg/2ml inj ONE (18:52)
[2022-10-19] MEDS ORDERED: neostigmine methylsulfate 1 MG/ML 10ml vial ONE (18:52)
--- NOTE | 2022-10-19 19:05 | NUR ---
PT ARRIVED TO RR VIA GURNEY, PT WAKING UP, DENIES PAIN, VSS-BP ELEVATED ANESTHESIA AWARE, REPORT GIVEN-DR. SYED, PD CATHETER INTACT, WITH DRSG-CDI, PIV LEFT HAND 20G,
[2022-10-19] MEDS: morphine 4 MG/ML inj SYRINge IV PRN ×2 (19:14→19:26)
[2022-10-19] MEDS ORDERED: acetaminophen 1,000mg/100ml IV 100 ML IV ONE (19:35)
[2022-10-19] MEDS ORDERED: HYDROcodone/acetaminophen 10/325mg tab PO ONE (19:35)
--- NOTE | 2022-10-19 20:05 | NUR ---
PT DOING BETTER AFTER IV PAIN MEDS GIVEN, VSS-BP STILL SLIGHTLY ELEVATED, HAS CHRONIC HTN AND TAKES MEDS TO TX, DRSG-CDI, D/C INSTRUCTIONS GIVEN TO PT AND -ALL QUESTIONS ANSWERED, TAKEN VIA W/C WITH ALL BELONGINGS TO VEHICLE FOR TRANSPORT HOME.
== END 2022-10-19 20:05 | disposition home or self-care (01) ==
LOC: OR 15:15
PROVIDERS: ATTEND Surgery
DX: T85.691A Other mechanical complication of intraperitoneal dialysis catheter, initial encounter (principal); I12.0 Hypertensive chronic kidney disease with stage 5 chronic kidney disease or end stage renal disease; N18.6 End stage renal disease; Z87.891 Personal history of nicotine dependence; Z79.899 Other long term (current) drug therapy; Z88.0 Allergy status to penicillin; Y83.8 Other surgical procedures as the cause of abnormal reaction of the patient, or of later complication, without mention of misadventure at the time of the procedure; Y92.89 Other specified places as the place of occurrence of the external cause
CPT/HCPCS: 36415; 49325; 80053; 82948; 85025; J0131; J0690; J1100; J1642; J2175; J2250; J2270; J2405; J2704; J2710; J3010; J3490; J7120; Z7506; Z7512; A4215; A4618; A6449; A7000

== ENCOUNTER 2022-11-12 15:04 | Day surgery (SDC) | payer BC ==
[~2022-11-12] VITALS: Ht 182.9 cm; Wt 98.0 kg
[~2022-11-12 15:04] MED LIST changes: +DOCUMENT DATE & TIME OF BETA-BLOCKER PO ONE; +cefazolin 2gm/D5W 100mL 100 ML IV ONE; +famotidine 20mg tablet PO ONE; +ringers solution, lacted 1,000 ML IV SCH
[2022-11-12 15:33] LABS: ISTAT CREATININE 5.1 mg/dL (0.8-1.3); ISTAT HGB 13.6 g/dl (14.0-17.9); ISTAT IONIZED CALCIUM 1.13 mmol/L (1.03-1.32); POC BUN/CREATININE RATIO 6.5 (5.4-32.0)
[2022-11-12 15:42] VITALS: BP 153/111
[2022-11-12] MEDS ORDERED: heparin sodium, porcine/PF 100unit/ml 5ML syringe ONE (16:01)
[2022-11-12] MEDS ORDERED: BUPIVAcaine/PF 2.5 mg/ml (0.25%) 30ml vial ONE (16:01)
[2022-11-12] MEDS ORDERED: mupirocin 2% ointment 22GM ONE (16:01)
[2022-11-12] MEDS ORDERED: morphine 2 MG/ML inj. syringe IV PRN (16:55)
[2022-11-12] MEDS ORDERED: morphine 4 MG/ML inj SYRINge IV PRN (16:55)
[2022-11-12] MEDS ORDERED: ringers solution, lacted 1,000 ML IV SCH (16:55)
[2022-11-12] MEDS ORDERED: proCHLORperazine 10 MG/2 ml inj IV PRN (16:55)
[2022-11-12] MEDS ORDERED: ondansetron/PF 4mg/2ml inj IV PRN (16:55)
[2022-11-12] MEDS ORDERED: meperidine/PF 25mg/ml syringe IV PRN ×3 (16:55)
[2022-11-12] MEDS ORDERED: midazolam 1 mg/ML 2ml injection ONE (17:01)
[2022-11-12] MEDS ORDERED: fentaNYL/PF 50MCG/1 ML 2ML syringe ONE (17:01)
[2022-11-12] MEDS ORDERED: BUPIVAcaine/PF 2.5 mg/ml (0.25%) 30ml vial IJ ONE (17:24)
[2022-11-12] MEDS ORDERED: ceFAZolin 1000mg inj ONE ×2 (17:53)
[2022-11-12] MEDS ORDERED: propofol inj 20 ML IV ONE (17:56)
[2022-11-12] MEDS ORDERED: rocuronium 10mg/ml inj IV ONE (17:56)
[2022-11-12] MEDS ORDERED: ondansetron/PF 4mg/2ml inj ONE (18:22)
[2022-11-12] MEDS ORDERED: glycopyrrolate 0.2mg/ml inj ONE (18:22)
[2022-11-12] MEDS ORDERED: neostigmine methylsulfate 1 MG/ML 10ml vial ONE (18:22)
[2022-11-12 18:26] VITALS: BP 138/91
--- NOTE | 2022-11-12 18:26 | NUR ---
Received from OR via DRE, accompanied by Anesthesiologist and report given by YAHAIRA Anesthesiologist. PATIENT WAKING UP, DENIES PAIN, V/S WNL, SCD ON , PIV 20G RIGHT HAND, BANDAID LAPS SITES C/D/I TO ABDOMEN AND PERITONEAL DRESSING C/D/I. Addendum: 11/12/22 at 1857 by Tadeo Prajapati RN Amended: Links added.
[2022-11-12 18:30] VITALS: BP 138/91
[2022-11-12 18:40] VITALS: BP 131/84
[2022-11-12 18:50] VITALS: BP 142/89
[2022-11-12 19:00] VITALS: BP 136/91
--- NOTE | 2022-11-12 19:06 | NUR ---
ALL DISCHARGE CRITERIA HAS BEEN MET. VSS, PAIN AT A TOLERABLE LEVEL, VOIDING AND ABLE TO SAFELY AMBULATE AND TRANSFER SELF. IV TAKEN OUT WITHOUT ANY COMPLICATIONS. ALL DISCHARGE INSTRUCTIONS COVERED WITH PATIENT AND ALL QUESTIONS ANSWERED. PATIENT TAKEN OUT VIA WHEELCHAIR WITH ALL BELONGINGS TO PERSONAL VEHICLE WHERE FAMILY DROVE PATIENT HOME.
== END 2022-11-12 19:06 | disposition home or self-care (01) ==
LOC: PAS 15:04
PROVIDERS: ATTEND Surgery
DX: T85.691A Other mechanical complication of intraperitoneal dialysis catheter, initial encounter (principal); I12.0 Hypertensive chronic kidney disease with stage 5 chronic kidney disease or end stage renal disease; N18.6 End stage renal disease; G47.30 Sleep apnea, unspecified; I25.10 Atherosclerotic heart disease of native coronary artery without angina pectoris; I42.8 Other cardiomyopathies; I25.2 Old myocardial infarction; Z87.01 Personal history of pneumonia (recurrent); Z87.891 Personal history of nicotine dependence; Z79.899 Other long term (current) drug therapy; Y83.8 Other surgical procedures as the cause of abnormal reaction of the patient, or of later complication, without mention of misadventure at the time of the procedure; Y92.89 Other specified places as the place of occurrence of the external cause
CPT/HCPCS: 49325; 80047; C1769; J0690; J1642; J2175; J2250; J2405; J2704; J2710; J3010; J3490; J7040; J7120; Z7506; Z7508; Z7512; A4215; A4618; A7000

== ENCOUNTER 2022-12-12 07:30 | Emergency (ER) | payer BC ==
[~2022-12-12] VITALS: Ht 182.9 cm; Wt 95.5 kg
[~2022-12-12 07:30] MED LIST changes: -DOCUMENT DATE & TIME OF BETA-BLOCKER PO ONE; -cefazolin 2gm/D5W 100mL 100 ML IV ONE; -famotidine 20mg tablet PO ONE; -ringers solution, lacted 1,000 ML IV SCH
[2022-12-12 08:12] LABS: BASOPHILS % (AUTO) 0.5 % (0-1); EOSINOPHILS # (AUTO) 0.4 X10'3 (0-0.9); EOSINOPHILS % (AUTO) 4.7 % (0-6); HEMATOCRIT 39.6 % (42.0-52.0); HEMOGLOBIN 13.3 g/dl (14.0-17.9); LYMPHOCYTES # (AUTO) 2.2 X10'3 (1.1-4.8); LYMPHOCYTES % (AUTO) 24.6 % (21-51); MEAN CORPUSCULAR HEMOGLOBIN 27.3 PG (27.0-31.0); MEAN CORPUSCULAR HGB CONC 33.6 g/dL (33.0-36.5); MEAN CORPUSCULAR VOLUME 81.2 FL (78-98); MEAN PLATELET VOLUME 6.6 FL (7.4-10.4); MONOCYTES # (AUTO) 0.6 X10'3 (0-0.9); MONOCYTES % (AUTO) 6.5 % (2-12); NEUTROPHILS # (AUTO) 5.6 X10'3 (1.8-7.7); NEUTROPHILS % (AUTO) 63.7 % (42-75); PLATELET COUNT 359 X10'3 (140-440); RED BLOOD COUNT 4.88 X10'6 (4.70-6.10); RED CELL DISTRIBUTION WIDTH 15.6 % (11.5-14.5); WHITE BLOOD COUNT 8.8 X10'3 (4.5-11.0)
--- NOTE | 2022-12-12 08:12 | NUR ---
Called the House Sup per dr. Castelan request to notify the OR crew about this patient surgery schedule at 10 am today
[2022-12-12 08:25] VITALS: TEMP 98.2
[2022-12-12 08:26] LABS: APTT 32 SECONDS (22-32)
[2022-12-12 08:27] LABS: ALANINE AMINOTRANSFERASE 18 U/L (12-78); ALBUMIN 3.6 G/DL (3.4-5.0); ALBUMIN/GLOBULIN RATIO 0.8 (1.1-1.5); ALKALINE PHOSPHATASE 83 IU/L (46-116); ANION GAP 16 (8-16); ASPARTATE AMINO TRANSFERASE 12 U/L (10-37); BILIRUBIN,TOTAL 0.2 MG/DL (0.1-1.0); BLOOD UREA NITROGEN 63 MG/DL (7-18); BUN/CREATININE RATIO 11.8 (10.0-20.0); CHLORIDE 108 MMOL/L (99-107); CREATININE 5.36 MG/DL (0.60-1.10); GLUCOSE 107 MG/DL (70-104); SODIUM 140 MMOL/L (135-145); TOTAL CARBON DIOXIDE 16.1 MMOL/L (24-32); TOTAL PROTEIN 8.2 G/DL (6.4-8.2); eGFR 12 ML/MIN
[2022-12-12] MEDS ORDERED: normal saline 1000ml 1,000 ML IV SCH (08:30)
[2022-12-12] MEDS ORDERED: ondansetron/PF 4mg/2ml inj IV PRN (09:20)
[2022-12-12] MEDS ORDERED: morphine 4 MG/ML inj SYRINge IV PRN (09:20)
[2022-12-12] MEDS ORDERED: proCHLORperazine 10 MG/2 ml inj IV PRN (09:20)
[2022-12-12] MEDS ORDERED: meperidine/PF 25mg/ml syringe IV PRN ×3 (09:20)
[2022-12-12] MEDS ORDERED: ringers solution, lacted 1,000 ML IV SCH (09:20)
[2022-12-12] MEDS ORDERED: morphine 2 MG/ML inj. syringe IV PRN (09:20)
[2022-12-12] MEDS ORDERED: desflurane 240ml liquid inh. IH ONE (09:57)
[2022-12-12] MEDS ORDERED: BUPIVAcaine/PF 2.5 mg/ml (0.25%) 30ml vial ONE (10:05)
[2022-12-12] MEDS ORDERED: fentaNYL/PF 50MCG/1 ML 2ML syringe ONE (10:08)
[2022-12-12] MEDS ORDERED: midazolam 1 mg/ML 2ml injection ONE ×2 (10:08→10:15)
[2022-12-12] MEDS ORDERED: LIDOcaine 2% (20mg/ml) 5ml vial ONE (10:15)
[2022-12-12] MEDS ORDERED: propofol inj 20 ML IV ONE (10:15)
[2022-12-12] MEDS ORDERED: BUPIVAcaine/PF 2.5 mg/ml (0.25%) 30ml vial IJ ONE (10:30)
[2022-12-12] MEDS ORDERED: ceFAZolin 1000mg inj ONE ×2 (10:35)
[2022-12-12] MEDS ORDERED: rocuronium 10mg/ml inj IV ONE (10:36)
[2022-12-12] MEDS ORDERED: bacitracin 15gm ointment TP ONE (10:43)
[2022-12-12] MEDS ORDERED: sugammadex 200mg/2ml injection IV ONE (10:47)
[2022-12-12] MEDS ORDERED: ondansetron/PF 4mg/2ml inj ONE (10:48)
[2022-12-12 10:57] VITALS: BP 140/101; PULSE 80; RESP 16; O2SAT 100
--- NOTE | 2022-12-12 10:57 | NUR ---
Received from OR via DRE TO RR 4, accompanied by Anesthesiologist DR CASTELLANO and report given by Anesthesiolgist. PT PRESEELEFTYT TOMMY SHAIKH 20G RIGHT HAND, ABD DRESSING MEDINA, VSS. Addendum: 12/12/22 at 1108 by Opal Harris RN RN Amended: Links added.
[2022-12-12 11:10] VITALS: BP 154/101; PULSE 75; RESP 15; O2SAT 97
[2022-12-12] MEDS ORDERED: oxyCODONE/APAP 10/325mg tablet PO ONE (11:10)
[2022-12-12 11:20] VITALS: BP 152/107; PULSE 68; RESP 15; O2SAT 99
[2022-12-12 11:30] VITALS: BP 156/97; PULSE 66; RESP 12; O2SAT 100
[2022-12-12 11:47] VITALS: BP 149/96; PULSE 69; RESP 14; O2SAT 100
--- NOTE | 2022-12-12 11:47 | NUR ---
PT REPORTS PAIN /. PO MEDICATION GIVEN FOR PT PAIN /10 FOR 3 HOUR RIDE HOME. IV DC'D WITH CANULA INTACT. DC INSTRUCTIONS REVIEWED WITH PT AND PT'S WHO VERBALIZED UNDERSTANDING WITH NO FURTHER QUESTIONS AT THIS TIME. PT WHEELED OUT OF HOSPITAL IN WHEEL CHAIR AND DROVE PT HOME. Addendum: 12/12/22 at 1201 by Opal Harris RN, RN Amended: Links added.
== END 2022-12-12 11:47 | disposition home or self-care (01) ==
LOC: ER 07:31
DX: T85.691A Other mechanical complication of intraperitoneal dialysis catheter, initial encounter (principal); N18.9 Chronic kidney disease, unspecified; Z79.899 Other long term (current) drug therapy; Z99.2 Dependence on renal dialysis
CPT/HCPCS: 36415; 49421; 80053; 85025; 85610; 85730; 87070; 87075; 87077; 87186; 93005; 96361; 96374; 99285; J0690; J2175; J2250; J2405; J2704; J3010; J3490; J7030; Z7506; Z7512; 96375; A4215; A4618; A7000

== ENCOUNTER 2023-06-21 12:07 | Inpatient (IN) | payer BC ==
[~2023-06-21] VITALS: Ht 182.9 cm; Wt 96.7 kg
[2023-06-21 13:16] LABS: BASOPHILS % (AUTO) 0 % (0-1); EOSINOPHILS # (AUTO) 0.3 X10'3 (0-0.9); EOSINOPHILS % (AUTO) 3.9 % (0-6); HEMATOCRIT 33.5 % (42.0-52.0); HEMOGLOBIN 11.3 g/dl (14.0-17.9); LYMPHOCYTES # (AUTO) 1.5 X10'3 (1.1-4.8); LYMPHOCYTES % (AUTO) 18.1 % (21-51); MEAN CORPUSCULAR HEMOGLOBIN 28.2 PG (27.0-31.0); MEAN CORPUSCULAR HGB CONC 33.9 g/dL (33.0-36.5); MEAN CORPUSCULAR VOLUME 83.1 FL (78-98); MEAN PLATELET VOLUME 6.9 FL (7.4-10.4); MONOCYTES # (AUTO) 0.7 X10'3 (0-0.9); MONOCYTES % (AUTO) 8.2 % (2-12); NEUTROPHILS # (AUTO) 5.9 X10'3 (1.8-7.7); NEUTROPHILS % (AUTO) 69.8 % (42-75); PLATELET COUNT 320 X10'3 (140-440); RED BLOOD COUNT 4.02 X10'6 (4.70-6.10); RED CELL DISTRIBUTION WIDTH 13.9 % (11.5-14.5); WHITE BLOOD COUNT 8.5 X10'3 (4.5-11.0)
[2023-06-21 13:17] LABS: ALBUMIN 3.5 G/DL (3.4-5.0); ANION GAP 18 (8-16); BLOOD UREA NITROGEN 137 MG/DL (7-18); BUN/CREATININE RATIO 8.4 (10.0-20.0); CALCIUM 8.5 MG/DL (8.5-10.1); CHLORIDE 102 MMOL/L (99-107); CREATININE 16.29 MG/DL (0.60-1.10); GLUCOSE 98 MG/DL (70-104); POTASSIUM 4.1 MMOL/L (3.5-5.1); SODIUM 139 MMOL/L (135-145); TOTAL CARBON DIOXIDE 19.4 MMOL/L (24-32); eCRCL 6 ML/MIN; eGFR 3 ML/MIN
[2023-06-21] MEDS ORDERED: mag hydrox/Alum hydrox/simeth 30ml oral suspension PO PRN (13:35)
[2023-06-21] MEDS ORDERED: potassium Cl 40MEQ/1/2NS 520ml 520 ML IV PRN (13:35)
[2023-06-21] MEDS ORDERED: docusate sod 100mg capsule PO PRN (13:35)
[2023-06-21] MEDS ORDERED: acetaminophen 325mg tablet PO PRN (13:35)
[2023-06-21] MEDS ORDERED: ondansetron/PF 4mg/2ml inj IV PRN (13:35)
[2023-06-21] MEDS ORDERED: magnesium 4gm in 100ml NS 100 ML IV PRN (13:35)
[2023-06-21] MEDS ORDERED: magnesium 2GM in 50ml NS 50 ML IV PRN (13:35)
[2023-06-21] MEDS ORDERED: potassium Cl 20 mEq SR tablet PO PRN ×2 (13:35)
[2023-06-21] MEDS ORDERED: magnesium Cl slow-release 64mg tablet PO PRN (13:35)
[2023-06-21] MEDS ORDERED: magnesium hydroxide 30ml (MOM) UD suspension PO PRN (13:35)
[2023-06-21] MEDS ORDERED: carvedilol 6.25mg tablet PO SCH (17:55)
[2023-06-21] MEDS: carvedilol 6.25mg tablet PO SCH (18:10)
[2023-06-21] MEDS: NIFEdipine XL 30mg tablet PO SCH (18:10)
[2023-06-21] MEDS: K and/or MAG REPLACEMENT MC SCH (20:00)
[2023-06-21 21:20] VITALS: BP 156/95; PULSE 79; RESP 20; TEMP 97.6; O2SAT 99
[2023-06-22] VITALS (18 sets, daily range): BP systolic 142–190; BP diastolic 77–118; PULSE 72–96; RESP 12–19; TEMP 97.4–98; O2SAT 95–100
[2023-06-22] MEDS ORDERED: normal saline 1000ml 250 ML IV PRN (07:15)
[2023-06-22] MEDS ORDERED: heparin 1,000unit/ml 10ml vial 10 ML IV ONE (07:15)
[2023-06-22] MEDS ORDERED: heparin 1,000 units/ml 10ml inj HE ONE ×2 (07:20)
[2023-06-22 07:56] LABS: BASOPHILS % (AUTO) 0.1 % (0-1); EOSINOPHILS # (AUTO) 0.4 X10'3 (0-0.9); EOSINOPHILS % (AUTO) 4.8 % (0-6); HEMOGLOBIN 10.9 g/dl (14.0-17.9); LYMPHOCYTES # (AUTO) 1.7 X10'3 (1.1-4.8); LYMPHOCYTES % (AUTO) 21.1 % (21-51); MEAN CORPUSCULAR HEMOGLOBIN 29.1 PG (27.0-31.0); MEAN CORPUSCULAR HGB CONC 35.2 g/dL (33.0-36.5); MEAN CORPUSCULAR VOLUME 82.8 FL (78-98); MONOCYTES # (AUTO) 0.7 X10'3 (0-0.9); MONOCYTES % (AUTO) 8.2 % (2-12); NEUTROPHILS # (AUTO) 5.4 X10'3 (1.8-7.7); NEUTROPHILS % (AUTO) 65.8 % (42-75); PLATELET COUNT 269 X10'3 (140-440); RED BLOOD COUNT 3.74 X10'6 (4.70-6.10); RED CELL DISTRIBUTION WIDTH 13.6 % (11.5-14.5); WHITE BLOOD COUNT 8.2 X10'3 (4.5-11.0)
[2023-06-22] MEDS: K and/or MAG REPLACEMENT MC SCH ×2 (08:00→20:20)
[2023-06-22 08:12] LABS: ALANINE AMINOTRANSFERASE 17 U/L (12-78); ALBUMIN 3.2 G/DL (3.4-5.0); ALBUMIN/GLOBULIN RATIO 0.8 (1.1-1.5); ALKALINE PHOSPHATASE 69 IU/L (46-116); ANION GAP 19 (8-16); ASPARTATE AMINO TRANSFERASE 18 U/L (10-37); BILIRUBIN,TOTAL 0.4 MG/DL (0.1-1.0); BLOOD UREA NITROGEN 133 MG/DL (7-18); BUN/CREATININE RATIO 8.3 (10.0-20.0); CALCIUM 8.1 MG/DL (8.5-10.1); CHLORIDE 102 MMOL/L (99-107); CREATININE 15.95 MG/DL (0.60-1.10); GLUCOSE 93 MG/DL (70-104); POTASSIUM 3.9 MMOL/L (3.5-5.1); SODIUM 139 MMOL/L (135-145); TOTAL PROTEIN 7.1 G/DL (6.4-8.2); eCRCL 7 ML/MIN; eGFR 3 ML/MIN
[2023-06-22 08:14] LABS: PHOSPHORUS 9.9 MG/DL (2.3-4.5)
[2023-06-22 08:15] LABS: MAGNESIUM 4.3 MG/DL (1.5-2.4)
[2023-06-22] MEDS ORDERED: mannitol 12.5gm/50mL VIAL IV ONE (08:15)
[2023-06-22] MEDS: NIFEdipine XL 30mg tablet PO SCH ×2 (08:23→20:20)
[2023-06-22] MEDS: carvedilol 6.25mg tablet PO SCH ×2 (08:23→20:20)
[2023-06-22] MEDS ORDERED: heparin 1,000unit/ml 10ml vial 10 ML ONE (10:15)
[2023-06-22] MEDS ORDERED: midazolam 1 mg/ML 2ml injection ONE (10:48)
[2023-06-22] MEDS ORDERED: fentaNYL/PF 50MCG/1 ML 2ML syringe ONE (10:49)
[2023-06-22] MEDS ORDERED: ceFAZolin/D5W- 1GM premix 50 ML IV ONE (10:50)
[2023-06-22] MEDS: hydrALAZINE 20mg/ml inj. IV PRN ×2 (15:20→20:37)
[2023-06-22] MEDS ORDERED: PERFLUTREN PROTEIN-A MICROSPHR (Optison) 0.22 MG/ML 3ML VIAL IV ONE (20:05)
[2023-06-23] VITALS (11 sets, daily range): BP systolic 156–222; BP diastolic 96–127; PULSE 83–90; RESP 16–20; TEMP 97–99.2; O2SAT 94–99
[2023-06-23 07:21] LABS: BASOPHILS % (AUTO) 0.2 % (0-1); EOSINOPHILS # (AUTO) 0.3 X10'3 (0-0.9); HEMATOCRIT 31.7 % (42.0-52.0); HEMOGLOBIN 11.2 g/dl (14.0-17.9); LYMPHOCYTES # (AUTO) 1.5 X10'3 (1.1-4.8); LYMPHOCYTES % (AUTO) 15.7 % (21-51); MEAN CORPUSCULAR HEMOGLOBIN 29.1 PG (27.0-31.0); MEAN CORPUSCULAR HGB CONC 35.3 g/dL (33.0-36.5); MEAN CORPUSCULAR VOLUME 82.5 FL (78-98); MEAN PLATELET VOLUME 6.9 FL (7.4-10.4); MONOCYTES # (AUTO) 0.9 X10'3 (0-0.9); NEUTROPHILS # (AUTO) 6.6 X10'3 (1.8-7.7); NEUTROPHILS % (AUTO) 71.1 % (42-75); PLATELET COUNT 287 X10'3 (140-440); RED BLOOD COUNT 3.84 X10'6 (4.70-6.10); RED CELL DISTRIBUTION WIDTH 13.9 % (11.5-14.5); WHITE BLOOD COUNT 9.4 X10'3 (4.5-11.0)
[2023-06-23 07:42] LABS: ALBUMIN 3.3 G/DL (3.4-5.0); ANION GAP 19 (8-16); BILIRUBIN,TOTAL 0.5 MG/DL (0.1-1.0); BLOOD UREA NITROGEN 101 MG/DL (7-18); BUN/CREATININE RATIO 8.2 (10.0-20.0); CALCIUM 8.6 MG/DL (8.5-10.1); CHLORIDE 101 MMOL/L (99-107); CREATININE 12.33 MG/DL (0.60-1.10); GLUCOSE 97 MG/DL (70-104); MAGNESIUM 3.5 MG/DL (1.5-2.4); PHOSPHORUS 8.3 MG/DL (2.3-4.5); POTASSIUM 3.6 MMOL/L (3.5-5.1); SODIUM 138 MMOL/L (135-145); TOTAL CARBON DIOXIDE 18.2 MMOL/L (24-32); TOTAL PROTEIN 7.4 G/DL (6.4-8.2); eCRCL 9 ML/MIN; eGFR 5 ML/MIN
[2023-06-23 07:43] LABS: ALANINE AMINOTRANSFERASE 16 U/L (12-78); ALBUMIN/GLOBULIN RATIO 0.8 (1.1-1.5); ALKALINE PHOSPHATASE 68 IU/L (46-116); ASPARTATE AMINO TRANSFERASE 5 U/L (10-37)
[2023-06-23] MEDS: K and/or MAG REPLACEMENT MC SCH ×2 (08:00→19:32)
[2023-06-23] MEDS: carvedilol 6.25mg tablet PO SCH ×2 (08:38→19:28)
[2023-06-23] MEDS: NIFEdipine XL 30mg tablet PO SCH ×2 (08:38→19:28)
[2023-06-23] MEDS ORDERED: heparin 1,000 units/ml 10ml inj HE ONE ×2 (09:35→16:40)
[2023-06-23] MEDS ORDERED: heparin 1,000 units/ml 10ml inj IV ONE (09:35)
[2023-06-23] MEDS ORDERED: heparin 1,000unit/ml 10ml vial 10 ML IV ONE (09:35)
[2023-06-23] MEDS ORDERED: tuberculin, purif. prot. deriv. 5 units/0.1ml ID ONE (12:20)
[2023-06-23] MEDS: hydrALAZINE 20mg/ml inj. IV PRN (20:28)
[2023-06-23] MEDS ORDERED: carvedilol 6.25mg tablet PO ONE (23:00)
[2023-06-23] MEDS: losartan 50mg tablet PO SCH (23:00)
[2023-06-24] VITALS (10 sets, daily range): BP systolic 139–170; BP diastolic 94–101; PULSE 94–99; RESP 16–18; TEMP 97.8–98.1; O2SAT 97–99
[2023-06-24 07:12] LABS: BASOPHILS % (AUTO) 0 % (0-1); EOSINOPHILS # (AUTO) 0.4 X10'3 (0-0.9); EOSINOPHILS % (AUTO) 4.1 % (0-6); HEMATOCRIT 32.2 % (42.0-52.0); HEMOGLOBIN 11.2 g/dl (14.0-17.9); LYMPHOCYTES % (AUTO) 22.2 % (21-51); MEAN CORPUSCULAR HGB CONC 34.8 g/dL (33.0-36.5); MEAN CORPUSCULAR VOLUME 83.3 FL (78-98); MEAN PLATELET VOLUME 6.9 FL (7.4-10.4); MONOCYTES # (AUTO) 0.9 X10'3 (0-0.9); MONOCYTES % (AUTO) 10.2 % (2-12); NEUTROPHILS # (AUTO) 5.7 X10'3 (1.8-7.7); NEUTROPHILS % (AUTO) 63.5 % (42-75); PLATELET COUNT 280 X10'3 (140-440); RED BLOOD COUNT 3.87 X10'6 (4.70-6.10); RED CELL DISTRIBUTION WIDTH 14.2 % (11.5-14.5)
[2023-06-24 07:24] LABS: ALANINE AMINOTRANSFERASE 11 U/L (12-78); ALBUMIN 3.3 G/DL (3.4-5.0); ALBUMIN/GLOBULIN RATIO 0.8 (1.1-1.5); ALKALINE PHOSPHATASE 69 IU/L (46-116); ANION GAP 19 (8-16); ASPARTATE AMINO TRANSFERASE 5 U/L (10-37); BILIRUBIN,TOTAL 0.4 MG/DL (0.1-1.0); BLOOD UREA NITROGEN 112 MG/DL (7-18); BUN/CREATININE RATIO 8.4 (10.0-20.0); CALCIUM 8.7 MG/DL (8.5-10.1); CHLORIDE 100 MMOL/L (99-107); CREATININE 13.26 MG/DL (0.60-1.10); GLUCOSE 100 MG/DL (70-104); MAGNESIUM 3.7 MG/DL (1.5-2.4); POTASSIUM 3.7 MMOL/L (3.5-5.1); SODIUM 139 MMOL/L (135-145); TOTAL CARBON DIOXIDE 20.3 MMOL/L (24-32); TOTAL PROTEIN 7.5 G/DL (6.4-8.2); eCRCL 8 ML/MIN; eGFR 4 ML/MIN
[2023-06-24] MEDS ORDERED: carvedilol 6.25mg tablet PO SCH (08:00)
[2023-06-24] MEDS: K and/or MAG REPLACEMENT MC SCH (08:00)
[2023-06-24 08:19] LABS: PHOSPHORUS 9.1 MG/DL (2.3-4.5)
[2023-06-24] MEDS ORDERED: CARV-50 PO (11:11)
[2023-06-24] MEDS ORDERED: LOSA50TA64 PO (11:11)
[2023-06-24] MEDS: NIFEdipine XL 30mg tablet PO SCH (11:18)
[2023-06-24] MEDS: losartan 50mg tablet PO SCH (11:18)
[2023-06-24 18:21] LABS: HBSAG SCREEN Negative (Negative)
[2023-06-24] MEDS ORDERED: carVEDilol 12.5mg tablet PO SCH (20:00)
[2023-06-25 16:26] LABS: HBSAG SCREEN Negative (Negative); HEP B CORE AB, TOT Negative (Negative)
== END 2023-06-24 12:57 | disposition home or self-care (01) | DRG 291 ==
LOC: ER 12:08 → ED HOLD 13:42 → OBSVTOIN 13:42 → PCU 3S 21:16
PROVIDERS: ADMIT Family Medicine; ATTEND Family Medicine
PROC: 0JH63XZ Insertion of Tunneled Vascular Access Device into Chest Subcutaneous Tissue and Fascia, Percutaneous Approach (ICD-10-PCS; principal; 2023-06-23)
PROC: 02H633Z Insertion of Infusion Device into Right Atrium, Percutaneous Approach (ICD-10-PCS; 2023-06-23)
PROC: B548ZZA Ultrasonography of Superior Vena Cava, Guidance (ICD-10-PCS; 2023-06-23)
PROC: 5A1D70Z Performance of Urinary Filtration, Intermittent, Less than 6 Hours Per Day (ICD-10-PCS; 2023-06-24)
DX: I13.2 Hypertensive heart and chronic kidney disease with heart failure and with stage 5 chronic kidney disease, or end stage renal disease (principal); N18.6 End stage renal disease; N17.9 Acute kidney failure, unspecified; E87.20 Acidosis, unspecified; I50.20 Unspecified systolic (congestive) heart failure; D63.8 Anemia in other chronic diseases classified elsewhere; E83.42 Hypomagnesemia; E83.39 Other disorders of phosphorus metabolism; E83.41 Hypermagnesemia; I25.10 Atherosclerotic heart disease of native coronary artery without angina pectoris; I25.2 Old myocardial infarction; Z72.0 Tobacco use; Z79.899 Other long term (current) drug therapy; Z99.2 Dependence on renal dialysis
CPT/HCPCS: 36415; 36581; 71045; 77001; 80048; 80053; 83735; 84100; 85025; 86704; 87081; 87340; 93306; 99285; A4620; A6258; A9270; C1750; C1769; C1894; E1594; G0257; G0378; J0360; J1644; J2150; J2250; J3010; J3490; J7030; J7040